=== PATIENT | female | born 1930 | race Caucasian/White ===

== ENCOUNTER → 2017-08-19 | Outpatient (CLI) | payer OTHER ==
[~2017-08-19] MED LIST: CHOL400T PO; CYAN100020 PO; DOCU-94 PO; FERR325T51 PO; FURO-85 PO; METO25TA56 PO; NITR-5 PO; OLME1TAB11 PO; ONDA8TAB6 PO; PANT40TA PO; RIVA1TAB4 PO; TRAM-10 PO
== END | disposition home or self-care (01) ==
LOC: C.LAB 17:07
PROVIDERS: ATTEND Internal Medicine
DX: D51.9 Vitamin B12 deficiency anemia, unspecified (principal); I10 Essential (primary) hypertension; E55.9 Vitamin D deficiency, unspecified; Z79.01 Long term (current) use of anticoagulants; Z79.899 Other long term (current) drug therapy; D50.9 Iron deficiency anemia, unspecified

== ENCOUNTER → 2017-12-07 | Outpatient (CLI) | payer OTHER ==
[~2017-12-07] MED LIST changes: +BNC/20 PO; -OLME1TAB11 PO
--- NOTE | 2017-12-07 16:32 | DIAGNOSTIC IMAGING REPORT ---
CHEST 2 VIEWS ROUTINE CLINICAL HISTORY: J06.9 Acute upper respiratory [id number] COMPARISON STUDY: 06/21/2016 FINDINGS: The cardiac and mediastinal contours remain stable. There is aortic tortuosity/ectasia. There is no failure. There is no focal pulmonary consolidation. There are no pleural effusions.[ IMPRESSION: No active disease in the chest. Electronically signed by: Jeancarlos Bianchi M.D. 12/07/2017 4:30 PM Dictated Date/Time: 12/07/2017 4:30 PM
[2017-12-07 17:24] LABS: BASO % 0.1 %; BASO ABS # 0.01 K/uL (0-0.2); HEMATOCRIT 42.3 % (37-47); HEMOGLOBIN 14.9 g/dL (12.0-16.0); IG# 0.02 K/uL (0.00-0.02); LYMPH % 6.4 %; LYMPH ABS # 0.61 K/uL (1.2-3.4); MEAN CELL VOLUME 95.3 fL (80-100); MEAN CORPUSCULAR HEMOGLOBIN 33.6 pg (25-34); MEAN CORPUSCULAR HGB CONC 35.2 g/dl (32-36); MEAN PLATELET VOLUME 10.3 fL (7.4-10.4); MONO % 12.7 %; MONO ABS # 1.21 K/uL (0.11-0.59); NEUT % 80.6 %; NEUT ABS # 7.69 K/uL (1.4-6.5); PLATELET COUNT 116 K/uL (130-400); RED CELL DISTRIBUTION WIDTH CV 13.5 % (11.5-14.5); RED CELL DISTRIBUTION WIDTH SD 46.8 fL (36.4-46.3); WHITE BLOOD COUNT 9.54 K/uL (4.8-10.8)
[2017-12-07 17:41] LABS: ALBUMIN 3.5 gm/dl (3.4-5.0); ALT/SGPT 22 U/L (12-78); AST/SGOT 22 U/L (15-37); BLOOD UREA NITROGEN 28 mg/dl (7-18); CALCIUM 8.8 mg/dl (8.5-10.1); CARBON DIOXIDE 29 mmol/L (21-32); CREATININE 1.49 mg/dl (0.60-1.20); GLUCOSE 124 mg/dl (70-99); POTASSIUM 3.3 mmol/L (3.5-5.1); SODIUM 132 mmol/L (136-145)
[2017-12-07 17:44] LABS: ALKALINE PHOSPHATASE 71 U/L (45-117); TOTAL PROTEIN 8.1 gm/dl (6.4-8.2)
== END | disposition home or self-care (01) ==
LOC: C.RAD1850 16:11
PROVIDERS: ATTEND Internal Medicine
DX: J06.9 Acute upper respiratory infection, unspecified (principal); E53.8 Deficiency of other specified B group vitamins

== ENCOUNTER → 2018-05-02 | Outpatient (CLI) | payer OTHER ==
[~2018-05-02] MED LIST changes: +ONDA-170 PO; -ONDA8TAB6 PO
== END | disposition home or self-care (01) ==
LOC: C.CCL 12:30
PROVIDERS: ATTEND Internal Medicine
DX: E55.9 Vitamin D deficiency, unspecified (principal); I10 Essential (primary) hypertension; I48.91 Unspecified atrial fibrillation

== ENCOUNTER 2020-02-28 08:14 | Inpatient (IN) ==
[2020-02-28 08:52] LABS: Basophils # (auto) 0.01 K/uL (0-0.2); Basophils % (auto) 0.1 %; Hematocrit (blood only) 42.1 % (37-47); Hemoglobin 14.7 g/dL (12.0-16.0); Immature Granulocytes # (auto) 0.05 K/uL (0.00-0.02); Immature Granulocytes % (auto) 0.4 %; Lymphocytes # (auto) 0.46 K/uL (1.2-3.4); Lymphocytes % (auto) 3.3 %; Mean Corpuscular Hemoglobin 33.6 pg (25-34); Mean Corpuscular Hgb Conc 34.9 g/dL (32-36); Mean Corpuscular Volume 96.1 fL (80-100); Mean Platelet Volume 9.9 fL (7.4-10.4); Monocytes # (auto) 0.62 K/uL (0.11-0.59); Monocytes % (auto) 4.4 %; Neutrophils # (auto) 12.89 K/uL (1.4-6.5); Neutrophils % (auto) 91.8 %; Platelet Count 153 K/uL (130-400); RDW Coefficient of Variation 13.9 % (11.5-14.5); Red Blood Count 4.38 M/uL (4.2-5.4); White Blood Count 14.03 K/uL (4.8-10.8)
--- NOTE | 2020-02-28 09:02 | XRay Report ---
XR chest 1V portable HISTORY: SEPSIS COMPARISON: Chest 12/25/2019. FINDINGS: No pneumothorax. The heart is mildly enlarged. Progressive interstitial and vascular thicke lina with right perihilar hazy airspace opacities. This is consistent with moderate pulmonary edema. There are small bilateral pleural effusions. IMPRESSION: Interval development of moderate pulmonary edema and small bilateral pleural effusions. ACT 112: Negative or not required by law. Electronically signed by: Guido Caldera M.D. 02/28/2020 9:00 AM
[2020-02-28 09:09] LABS: Alanine Aminotransferase 20 U/L (12-78); Albumin Level 3.3 gm/dl (3.4-5.0); Aspartate Aminotransferase 21 U/L (15-37); BUN Creatinine Ratio 15.5 (10-20); Blood Urea Nitrogen 12 mg/dl (7-18); Calcium 8.7 mg/dl (8.5-10.1); Carbon Dioxide 26 mmol/L (21-32); Chloride 85 mmol/L (98-107); Est GFR (African American) 78.1; Est GFR (Non-African American) 67.4; Glucose 267 mg/dl (70-99); Magnesium 1.8 mg/dl (1.8-2.4); Potassium 3.2 mmol/L (3.5-5.1); Sodium 124 mmol/L (136-145)
--- NOTE | 2020-02-28 09:09 | Emergency Department Note ---
Impression & Plan Atrial fibrillation with rapid ventricular response, Atrial fibrillation, Pulmonary edema, Hypoxia, Abdominal pain, Acute hyponatremia, Urinary tract infection ED Provider Note NAME: ERLINDA IBARRA AGE: 89 SEX: F : 1930 ARRIVES VIA: Ambulance INFORMANT: Patient, ED PROVIDER(S): Marcelo Raygoza DO CHIEF COMPLAINT: Abdominal pain HPI: The patient is an 89-year-old female with a history of atrial fibrillation who arrived at the emergency department from [facility]. The patient is obtunded and showing altered mental status. I received a prehospital notification about this patient and she was given IV pain medication prior to arrival for severe abdominal pain. The patient started having abdominal pain today. Her history is severely limited due to altered mental status. She was also noted to have very low oxygen saturation. The patient had no falls. She has had no fever or cough according to the prehospital notification. The patient did receive IV fentanyl prior to arrival. At this time the patient does complain of chest pain difficulty breathing and abdominal pain. She does answer questions slowly and appropriately. She was also noted to have dark stool prior to arrival. ROS: See above HPI for pertinent positives & negatives. A total of 10 systems reviewed and were otherwise negative. PAST MEDICAL HISTORY: See Below PAST SURGICAL HISTORY: See Below FAMILY HISTORY: See Below SOCIAL HISTORY: See Below HOME MEDICATIONS: See Below ALLERGIES: See Below VITALS: See Below PHYSICAL EXAMINATION: GENERAL: The patient is listless and very anxious appearing. She does follow commands slowly. EYES: The conjunctivae are clear. The pupils are round and reactive. EARS, NOSE, MOUTH AND THROAT: The nose is without any evidence of any deformity. Mucous membranes are dry. NECK: The neck is nontender and supple. RESPIRATORY: Shallow respirations were noted. There are diminished breath sounds noted throughout with rales scattered throughout. CARDIOVASCULAR: Tachycardic and irregular heart sounds were noted to auscultation. GASTROINTESTINAL: The abdomen was soft and nondistended. There is diffuse tenderness to palpation. Rectal exam revealed dark stool which was heme- negative. MUSCULOSKELETAL/EXTREMITIES: There is no evidence of gross deformity full range of motion is noted in the hips and shoulders. SKIN: Bilateral pedal edema was noted. There was palpable pulses in both feet. Skin was cool. NEUROLOGIC: Patient is oriented to person place and situation. Strength was diminished but symmetric. MEDICAL DECISION MAKING: The patient is an 89-year-old female who presented to the emergency department with multiple complaints. I am familiar with this patient and I did care for her in the past. The patient's altered mental status is definitely worsened than previous. She also had very severe breathing issues and was found to be in pulmonary edema. The patient was placed on supplemental oxygen which did improve her symptoms initially. She had multiple laboratory and radiographic studies. Ultimately she was found to have significant hypoxia and pulmonary edema. I discussed the patient's condition with her daughter. She is aware of the severity of the patient's condition at this time. I discussed the patient's condition with the on-call [facility] group. They have agreed to evaluate the patient in the emergency department for further management and disposition. The patient was placed on BiPAP which also improved her symptoms. Triage Nursing notes reviewed. Prior medical records reviewed Vital Signs: reviewed and remarkable for hypoxia and tachycardia. Differential diagnosis: Infection, hypoglycemia, electrolyte abnormalities, overdose, toxicologic, cardiac sources, intracerebral event, neurologic, trauma, as well as other pathologies. ER treatment provided: See below Diagnostics interpreted by me: ECG: EKG was obtained in the emergency department. My interpretation is atrial fibrillation at 126 bpm. Frequent PVCs were noted. Poor R wave progression was noted. Diffuse ST segment abnormalities were noted. There is no previous tracing available for comparison. Cardiac Monitoring: An order was placed for continuous cardiac monitoring. The monitor shows a rate of 130 with atrial fibrillation rhythm. Laboratory studies: As stated above and show below. Imaging studies: See below Consultation(s): 1115: I discussed the patient's condition with her daughter, Susie Hall [phone]. She is aware of how sick her mother's condition is. She does state that the patient has advanced directives and would not want to be put on a ventilator at this time. She would like to be updated once the admitting team evaluates the patient. 1140: I discussed this case with Bee who is covering for the [facility] group. They will evaluate the patient in the emergency department for further management disposition. ED COURSE: Procedures: none PDMP:reviewed and no issues Critical Care: I have personally spent greater than 60 minutes of critical care time in the direct management of this patient. This includes bedside care, interpretation of diagnostic studies, and testing, discussion with consultants, patient, and family members, and other required patient management activities. This 60 minutes is in excess of all separately billable procedures. Past Med/Surg History Medical History Anemia, B12 deficiency (Chronic) Anticoagulant long-term use (Chronic) Hypertension (Chronic) Left knee pain (Chronic) Positive Helicobacter pylori serology (Chronic) Postherpetic neuralgia (Chronic) Recurrent UTI (Chronic) Spinal stenosis (Chronic) Vitamin B12 deficiency (Chronic) Vitamin D deficiency (Chronic) Surgical History H/O colonoscopy 04/03/15 - diverticulosis, internal hemorrhoids H/O esophagogastroduodenoscopy 04/02/15 - gastritis, gastric erosions, hiatal hernia H/O hernia repair (Resolved) History of ankle surgery History of cataract surgery (Resolved) Hx of tonsillectomy (Resolved) Social History Preferred Language: Japanese Communication Ability: Effective Communication Ability Comment: altered mental status, Visual Impairment: No Limitations Hearing Ability: Normal Inseminator Required: No Beliefs That Will Affect Care: None Current Living Situation: Personal Care Facility current occupational status: retired Other Information That Helps Us Care for You: No Feels Safe at Home: Yes Safety Concerns: Feels Safe At This Time Safety Concerns Comment: weakness increased, started using wheelchair Smoking Status: Never smoker Do You Dip or Chew Tobacco: No ; Second Hand Exposure: No ; Tobacco Cessation Education Requested by Patient: No Hx Alcohol Use: No Hx Substance Use: No Allergies Allergies Allergy/AdvReac Type Severity Reaction Status Date / Time Quinidine-Quinine Analogues Allergy Severe Anaphylaxis Verified 02/28/20 08:50 (Cincho Sulfa (Sulfonamide Allergy Severe HIVES Verified 02/28/20 08:50 Antibiotics) tetracycline Allergy Mild GI SYMPTOMS Verified 02/28/20 08:50 tramadol AdvReac Cognitive Verified 02/28/20 08:50 symptoms Home Meds Home Medications Medication Instructions Recorded Confirmed ascorbic acid (vitamin C) 500 mg 1 gm PO BID tab 09/11/19 02/28/20 tablet cyanocobalamin (vitamin B-12) 1,000 mcg SL DAILY@0800 #90 tab 10/09/19 02/28/20 1,000 mcg sublingual tablet cholecalciferol (vitamin D3) 125 5,000 units PO DAILY@1600 #30 tab 12/22/19 02/28/20 mcg (5,000 unit) tablet ferrous sulfate 325 mg (65 mg 325 mg PO BID #60 tab 12/22/19 02/28/20 iron) tablet duloxetine 20 mg PO DAILY@0800 12/25/19 02/28/20 pantoprazole 40 mg PO DAILY@0800 12/25/19 02/28/20 rivaroxaban 15 mg PO DAILY@1600 12/25/19 02/28/20 senna 8.6 mg PO BID PRN 12/25/19 02/28/20 acetaminophen 325 mg tablet 650 mg PO Q4H PRN tab 01/01/20 02/28/20 dextromethorphan-guaifenesin 10 5 ml PO Q4H PRN ml 01/01/20 02/28/20 mg-100 mg/5 mL oral liquid docusate sodium 100 mg capsule 100 mg PO BID cap 01/01/20 02/28/20 furosemide 20 mg PO DAILY@0800 02/28/20 02/28/20 losartan-hydrochlorothiazide 0.5 tab PO DAILY@0802/28/20 02/28/20 Previous Rx's Medication Instructions Recorded metoprolol tartrate 25 mg tablet 25 mg PO BID #180 tab 09/24/19 levalbuterol tartrate 45 2 puffs INH Q4H PRN #15 gm 12/05/19 mcg/actuation aerosol inhaler ondansetron HCl 4 mg tablet 4 mg PO Q8H PRN #90 tab 01/22/20 nitrofurantoin macrocrystal 100 mg 100 mg PO DAILY@0800 #90 cap 02/12/20 capsule Results & Data (ED) Vital Signs Vital Signs - 24 hr 02/28/20 08:20 02/28/20 09:05 02/28/20 10:44 Temperature 36.7 C Temperature Source Oral Pulse Rate 136 H Pulse Rate [Apical] 113 H Pulse Rhythm Regular Pulse Rhythm [Apical] Irregular Pulse Strength Normal Pulse Strength [Apical] Normal Respiratory Rate 28 H 26 H Respiratory Effort / Characteristics Non-Labored Spontaneous Spontaneous Accessory Muscle Use Grunting Labored Respiratory Depth Normal Normal Respiratory Pattern Regular Regular Blood Pressure 155/118 H Blood Pressure [Right Arm] 122/87 Blood Pressure Mean 130 Blood Pressure Mean [Right Arm] 98 Blood Pressure Position Sitting Blood Pressure Position [Right Arm] Lying Pulse Oximetry 73 L 90 87 L Oxygen Delivery Method Room Air Non-rebreather Non-rebreather Oxygen Flow Rate 15 15 Fraction of Inspired Oxygen Sepsis Recent Fever Within 48 Hours No Sepsis New/Unexplained Change in Mental Status Yes Sepsis Action Taken by Nursing No Action Required 02/28/20 11:00 02/28/20 11:17 02/28/20 11:30 Temperature Temperature Source Pulse Rate 119 H 114 H Pulse Rate [Apical] 105 H 99 H Pulse Rhythm Irregular Pulse Rhythm [Apical] Irregular Irregular Pulse Strength Pulse Strength [Apical] Normal Normal Respiratory Rate 26 H 22 16 Respiratory Effort / Characteristics Non-Labored Spontaneous Spontaneous SOB on Exertion Non-Labored Spontaneous Respiratory Depth Normal Shallow Normal Respiratory Pattern Regular Tachypnea Regular Blood Pressure Blood Pressure [Right Arm] 104/72 100/66 Blood Pressure Mean Blood Pressure Mean [Right Arm] 82 77 Blood Pressure Position Blood Pressure Position [Right Arm] Lying Lying Pulse Oximetry 88 L 88 L 100 Oxygen Delivery Method Non-rebreather BiPAP Oxygen Flow Rate 15 15 Fraction of Inspired Oxygen 100 Sepsis Recent Fever Within 48 Hours Sepsis New/Unexplained Change in Mental Status Sepsis Action Taken by Nursing 02/28/20 12:00 02/28/20 12:30 02/28/20 13:00 Temperature Temperature Source Pulse Rate Pulse Rate [Apical] 110 H 95 H 95 H Pulse Rhythm Pulse Rhythm [Apical] Irregular Irregular Irregular Pulse Strength Pulse Strength [Apical] Normal Normal Normal Respiratory Rate 20 20 20 Respiratory Effort / Characteristics Non-Labored Spontaneous Non-Labored Spontaneous Non-Labored Spontaneous Respiratory Depth Normal Normal Normal Respiratory Pattern Regular Regular Regular Blood Pressure Blood Pressure [Right Arm] 111/77 105/65 126/92 Blood Pressure Mean Blood Pressure Mean [Right Arm] 88 78 103 Blood Pressure Position Blood Pressure Position [Right Arm] Lying Lying Lying Pulse Oximetry 96 95 97 Oxygen Delivery Method BiPAP BiPAP BiPAP Oxygen Flow Rate Fraction of Inspired Oxygen Sepsis Recent Fever Within 48 Hours Sepsis New/Unexplained Change in Mental Status Sepsis Action Taken by [facility] Medications Current Medication List: was personally reviewed by me Laboratory Data Attestation: I reviewed the patient's lab results. Result diagrams: 02/28/20 08:35 02/28/20 08:35 Lab Results 02/28/20 02/28/20 02/28/20 Range/Units 08:35 08:35 08:35 WBC 14.03 H (4.8-10.8) K/uL RBC 4.38 (4.2-5.4) M/uL Hgb 14.7 (12.0-16.0) g/dL POC Hgb (12.0-16.0) g/dl Hct 42.1 (37-47) % POC Hct (37-47) % MCV 96.1 (80-100) fL MCH 33.6 (25-34) pg MCHC 34.9 (32-36) g/dL RDW Std Deviation 49.0 H (36.4-46.3) fL RDW Coeff of Yemi 13.9 (11.5-14.5) % Plt Count 153 (130-400) K/uL MPV 9.9 (7.4-10.4) fL Immature Gran % (Auto) 0.4 % Neut % (Auto) 91.8 % Lymph % (Auto) 3.3 % [place] % (Auto) 4.4 % Eos % (Auto) 0.0 % Baso % (Auto) 0.1 % Immature Gran # (Auto) 0.05 H (0.00-0.02) K/uL Neut # (Auto) 12.89 H (1.4-6.5) K/uL Lymph # (Auto) 0.46 L (1.2-3.4) K/uL [place] # (Auto) 0.62 H (0.11-0.59) K/uL Eos # (Auto) 0.00 (0-0.5) K/uL Baso # (Auto) 0.01 (0-0.2) K/uL PT 12.9 H (9.0-12.0) Seconds INR 1.2 H (0.9-1.1) APTT 28.4 (21.0-31.0) Seconds PTT Ratio 1.0 VBG pH VBG pCO2 VBG pO2 VBG HCO3 VBG O2 Saturation VBG Base Excess Barometric Pressure POC Sodium (135-144) mmol/L Sodium 124 L (136-145) mmol/L POC Potassium (3.3-5.0) mmol/L Potassium 3.2 L (3.5-5.1) mmol/L POC Chloride (101-112) mmol/L Chloride 85 L (98-107) mmol/L Carbon Dioxide 26 (21-32) mmol/L POC Total CO2 (24-31) mmol/L Anion Gap 13.0 H (3-11) POC Anion Gap (16-25) mmol/L POC BUN (7-18) mg/dl BUN 12 (7-18) mg/dl Creatinine 0.78 (0.6-1.2) mg/dl POC Creatinine (0.6-1.3) mg/dl Est Cr Clr Drug Dosing Not Reportable Est GFR ( Amer) 78.1 Est GFR (Non-Af Amer) 67.4 BUN/Creatinine Ratio 15.5 (10-20) Glucose 267 H (70-99) mg/dl POC Glucose (other) (70-99) mg/dl Lactate (0.4-2.0) mmol/L Calcium 8.7 (8.5-10.1) mg/dl POC Ioniz Calcium Bowen (1.12-1.32) mmol/l Magnesium 1.8 (1.8-2.4) mg/dl Total Bilirubin 1.3 H (0.2-1) mg/dl AST 21 (15-37) U/L ALT 20 (12-78) U/L Alkaline Phosphatase 85 (45-117) U/L Troponin I 0.526 H* (0-0.045) ng/ml Total Protein 6.8 (6.4-8.2) gm/dl Albumin 3.3 L (3.4-5.0) gm/dl Globulin 3.5 (2.5-4.0) gm/dl Albumin/Globulin Ratio 0.9 (0.9-2) Procalcitonin (0-0.5) ng/ml Urine Color Urine Appearance (Clear) Urine pH (4.5-7.5) Ur Specific [place] (1.000-1.030) Urine Protein (Negative) Urine Glucose (UA) (Negative) Urine Ketones (Negative) Urine Blood (Negative) Urine Nitrite (Negative) Urine Bilirubin (Negative) Urine Urobilinogen (Negative) Ur Leukocyte Esterase (Negative) Urine WBC (Auto) (0-5) /hpf Urine RBC (Auto) (0-4) /hpf U Hyaline Cast (Auto) (0-5) /lpf U Epithel Cells (Auto) (0-5) /lpf Urine Bacteria (Auto) (Negative) Ur Renal Epithelial Cell Urine Mucus (None Prsent) SARS-CoV-2 RNA (RT-PCR) Blood Type Antibody Screen 02/28/20 02/28/20 02/28/20 Range/Units 08:35 08:45 08:54 WBC (4.8-10.8) K/uL RBC (4.2-5.4) M/uL Hgb (12.0-16.0) g/dL POC Hgb 16.0 (12.0-16.0) g/dl Hct (37-47) % POC Hct 47 (37-47) % MCV (80-100) fL MCH (25-34) pg MCHC (32-36) g/dL RDW Std Deviation (36.4-46.3) fL RDW Coeff of Yemi (11.5-14.5) % Plt Count (130-400) K/uL MPV (7.4-10.4) fL Immature Gran % (Auto) % Neut % (Auto) % Lymph % (Auto) % [place] % (Auto) % Eos % (Auto) % Baso % (Auto) % Immature Gran # (Auto) (0.00-0.02) K/uL Neut # (Auto) (1.4-6.5) K/uL Lymph # (Auto) (1.2-3.4) K/uL [place] # (Auto) (0.11-0.59) K/uL Eos # (Auto) (0-0.5) K/uL Baso # (Auto) (0-0.2) K/uL PT (9.0-12.0) Seconds INR (0.9-1.1) APTT (21.0-31.0) Seconds PTT Ratio VBG pH VBG pCO2 VBG pO2 VBG HCO3 VBG O2 Saturation VBG Base Excess Barometric Pressure POC Sodium 123 L (135-144) mmol/L Sodium (136-145) mmol/L POC Potassium 3.2 L (3.3-5.0) mmol/L Potassium (3.5-5.1) mmol/L POC Chloride 83 L (101-112) mmol/L Chloride (98-107) mmol/L Carbon Dioxide (21-32) mmol/L POC Total CO2 27 (24-31) mmol/L Anion Gap (3-11) POC Anion Gap 18.0 (16-25) mmol/L POC BUN 11 (7-18) mg/dl BUN (7-18) mg/dl Creatinine (0.6-1.2) mg/dl POC Creatinine 0.6 (0.6-1.3) mg/dl Est Cr Clr Drug Dosing Est GFR ( Amer) Est GFR (Non-Af Amer) BUN/Creatinine Ratio (10-20) Glucose (70-99) mg/dl POC Glucose (other) 273 H (70-99) mg/dl Lactate 2.7 H* (0.4-2.0) mmol/L Calcium (8.5-10.1) mg/dl POC Ioniz Calcium Bowen 1.06 L (1.12-1.32) mmol/l Magnesium (1.8-2.4) mg/dl Total Bilirubin (0.2-1) mg/dl AST (15-37) U/L ALT (12-78) U/L Alkaline Phosphatase (45-117) U/L Troponin I (0-0.045) ng/ml Total Protein (6.4-8.2) gm/dl Albumin (3.4-5.0) gm/dl Globulin (2.5-4.0) gm/dl Albumin/Globulin Ratio (0.9-2) Procalcitonin (0-0.5) ng/ml Urine Color Yellow Urine Appearance Clear (Clear) Urine pH 7.0 (4.5-7.5) Ur Specific [place] 1.019 (1.000-1.030) Urine Protein 3+ H (Negative) Urine Glucose (UA) 2+ H (Negative) Urine Ketones 1+ H (Negative) Urine Blood Trace H (Negative) Urine Nitrite Negative (Negative) Urine Bilirubin Negative (Negative) Urine Urobilinogen Negative (Negative) Ur Leukocyte Esterase Negative (Negative) Urine WBC (Auto) 5-10 H (0-5) /hpf Urine RBC (Auto) 5-10 H (0-4) /hpf U Hyaline Cast (Auto) 5-10 H (0-5) /lpf U Epithel Cells (Auto) >30 H (0-5) /lpf Urine Bacteria (Auto) 1+ H (Negative) Ur Renal Epithelial Cell Not Reportable Urine Mucus Present A (None Prsent) SARS-CoV-2 RNA (RT-PCR) Blood Type Antibody Screen 02/28/20 02/28/20 02/28/20 Range/Units 09:24 09:24 09:33 WBC (4.8-10.8) K/uL RBC (4.2-5.4) M/uL Hgb (12.0-16.0) g/dL POC Hgb (12.0-16.0) g/dl Hct (37-47) % POC Hct (37-47) % MCV (80-100) fL MCH (25-34) pg MCHC (32-36) g/dL RDW Std Deviation (36.4-46.3) fL RDW Coeff of Yemi (11.5-14.5) % Plt Count (130-400) K/uL MPV (7.4-10.4) fL Immature Gran % (Auto) % Neut % (Auto) % Lymph % (Auto) % [place] % (Auto) % Eos % (Auto) % Baso % (Auto) % Immature Gran # (Auto) (0.00-0.02) K/uL Neut # (Auto) (1.4-6.5) K/uL Lymph # (Auto) (1.2-3.4) K/uL [place] # (Auto) (0.11-0.59) K/uL Eos # (Auto) (0-0.5) K/uL Baso # (Auto) (0-0.2) K/uL PT (9.0-12.0) Seconds INR (0.9-1.1) APTT (21.0-31.0) Seconds PTT Ratio VBG pH Cancelled VBG pCO2 Cancelled VBG pO2 Cancelled VBG HCO3 Cancelled VBG O2 Saturation Cancelled VBG Base Excess Cancelled Barometric Pressure Cancelled POC Sodium (135-144) mmol/L Sodium (136-145) mmol/L POC Potassium (3.3-5.0) mmol/L Potassium (3.5-5.1) mmol/L POC Chloride (101-112) mmol/L Chloride (98-107) mmol/L Carbon Dioxide (21-32) mmol/L POC Total CO2 (24-31) mmol/L Anion Gap (3-11) POC Anion Gap (16-25) mmol/L POC BUN (7-18) mg/dl BUN (7-18) mg/dl Creatinine (0.6-1.2) mg/dl POC Creatinine (0.6-1.3) mg/dl Est Cr Clr Drug Dosing Est GFR ( Amer) Est GFR (Non-Af Amer) BUN/Creatinine Ratio (10-20) Glucose (70-99) mg/dl POC Glucose (other) (70-99) mg/dl Lactate (0.4-2.0) mmol/L Calcium (8.5-10.1) mg/dl POC Ioniz Calcium Bowen (1.12-1.32) mmol/l Magnesium (1.8-2.4) mg/dl Total Bilirubin (0.2-1) mg/dl AST (15-37) U/L ALT (12-78) U/L Alkaline Phosphatase (45-117) U/L Troponin I (0-0.045) ng/ml Total Protein (6.4-8.2) gm/dl Albumin (3.4-5.0) gm/dl Globulin (2.5-4.0) gm/dl Albumin/Globulin Ratio (0.9-2) Procalcitonin < 0.05 (0-0.5) ng/ml Urine Color Urine Appearance (Clear) Urine pH (4.5-7.5) Ur Specific [place] (1.000-1.030) Urine Protein (Negative) Urine Glucose (UA) (Negative) Urine Ketones (Negative) Urine Blood (Negative) Urine Nitrite (Negative) Urine Bilirubin (Negative) Urine Urobilinogen (Negative) Ur Leukocyte Esterase (Negative) Urine WBC (Auto) (0-5) /hpf Urine RBC (Auto) (0-4) /hpf U Hyaline Cast (Auto) (0-5) /lpf U Epithel Cells (Auto) (0-5) /lpf Urine Bacteria (Auto) (Negative) Ur Renal Epithelial Cell Urine Mucus (None Prsent) SARS-CoV-2 RNA (RT-PCR) Blood Type A Negative Antibody Screen NEGATIVE 02/28/20 02/28/20 02/28/20 Range/Units 10:10 11:06 12:38 WBC (4.8-10.8) K/uL RBC (4.2-5.4) M/uL Hgb (12.0-16.0) g/dL POC Hgb (12.0-16.0) g/dl Hct (37-47) % POC Hct (37-47) % MCV (80-100) fL MCH (25-34) pg MCHC (32-36) g/dL RDW Std Deviation (36.4-46.3) fL RDW Coeff of Yemi (11.5-14.5) % Plt Count (130-400) K/uL MPV (7.4-10.4) fL Immature Gran % (Auto) % Neut % (Auto) % Lymph % (Auto) % [place] % (Auto) % Eos % (Auto) % Baso % (Auto) % Immature Gran # (Auto) (0.00-0.02) K/uL Neut # (Auto) (1.4-6.5) K/uL Lymph # (Auto) (1.2-3.4) K/uL [place] # (Auto) (0.11-0.59) K/uL Eos # (Auto) (0-0.5) K/uL Baso # (Auto) (0-0.2) K/uL PT (9.0-12.0) Seconds INR (0.9-1.1) APTT (21.0-31.0) Seconds PTT Ratio VBG pH 7.35 L VBG pCO2 61 H VBG pO2 26 VBG HCO3 33 VBG O2 Saturation < 60.0 VBG Base Excess 5.5 Barometric Pressure 740.4 POC Sodium (135-144) mmol/L Sodium (136-145) mmol/L POC Potassium (3.3-5.0) mmol/L Potassium (3.5-5.1) mmol/L POC Chloride (101-112) mmol/L Chloride (98-107) mmol/L Carbon Dioxide (21-32) mmol/L POC Total CO2 (24-31) mmol/L Anion Gap (3-11) POC Anion Gap (16-25) mmol/L POC BUN (7-18) mg/dl BUN (7-18) mg/dl Creatinine (0.6-1.2) mg/dl POC Creatinine (0.6-1.3) mg/dl Est Cr Clr Drug Dosing Est GFR ( Amer) Est GFR (Non-Af Amer) BUN/Creatinine Ratio (10-20) Glucose (70-99) mg/dl POC Glucose (other) (70-99) mg/dl Lactate 3.6 H* (0.4-2.0) mmol/L Calcium (8.5-10.1) mg/dl POC Ioniz Calcium Bowen (1.12-1.32) mmol/l Magnesium (1.8-2.4) mg/dl Total Bilirubin (0.2-1) mg/dl AST (15-37) U/L ALT (12-78) U/L Alkaline Phosphatase (45-117) U/L Troponin I (0-0.045) ng/ml Total Protein (6.4-8.2) gm/dl Albumin (3.4-5.0) gm/dl Globulin (2.5-4.0) gm/dl Albumin/Globulin Ratio (0.9-2) Procalcitonin (0-0.5) ng/ml Urine Color Urine Appearance (Clear) Urine pH (4.5-7.5) Ur Specific [place] (1.000-1.030) Urine Protein (Negative) Urine Glucose (UA) (Negative) Urine Ketones (Negative) Urine Blood (Negative) Urine Nitrite (Negative) Urine Bilirubin (Negative) Urine Urobilinogen (Negative) Ur Leukocyte Esterase (Negative) Urine WBC (Auto) (0-5) /hpf Urine RBC (Auto) (0-4) /hpf U Hyaline Cast (Auto) (0-5) /lpf U Epithel Cells (Auto) (0-5) /lpf Urine Bacteria (Auto) (Negative) Ur Renal Epithelial Cell Urine Mucus (None Prsent) SARS-CoV-2 RNA (RT-PCR) Cancelled Blood Type Antibody Screen Administered Medications Ioversol (Optiray 320 125ml) 120 ml IV ONCE PRN PRN Reason: Interaction Checking Stop: 03/03/20 10:21 Last Admin: 02/28/20 10:23 Dose: 120 ml Documented by: [id number] Discontinued Medications Furosemide (Lasix) 40 mg IV NOW STA Stop: 02/28/20 10:32 Last Admin: 02/28/20 10:52 Dose: 40 mg Documented by: [id number] Piperacillin Sod/Tazobactam Sod (Zosyn) 4.5 gm in 120 mls @ 240 mls/hr IV NOW ONE Stop: 02/28/20 11:41 Last Admin: 02/28/20 12:32 Dose: 240 mls/hr Documented by: [id number] Imaging Data Radiologist's Impression: CT head/brain wo con CLINICAL HISTORY: 89 years-old Female presenting with altered mental status. TECHNIQUE: Multidetector CT imaging of the head was performed without the use of intravenous contrast. IV contrast: None. One or more dose lowering techniques were used consistent with the principles of ALARA (as low as reasonably achievable), including automatic exposure control, mA or kV adjustment to individual patient size, and/or use of iterative reconstruction. COMPARISON: 12/25/2019. CT DOSE (mGy.cm): The estimated cumulative dose is 1459.56 mGycm. FINDINGS: Fusion Juncture Grinder topogram: Unremarkable. Proportional ventricular and sulcal prominence, likely age-related parenchymal volume loss. No hemorrhage. Periventricular and subcortical white matter hypoattenuation, nonspecific but likely indicative of chronic small vessel ischemic change. Old lacunar infarct in the left thalamus, unchanged. No acute territorial infarct. No mass effect or midline shift. No extra-axial fluid collection. Paranasal sinuses and mastoid air cells clear. Calvarium intact. Absent [place] lenses. IMPRESSION: 1. 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 No acute intracranial abnormality. ACT 112: Negative or not required by law. Electronically signed by: Jacob Campos M.D. 02/28/2020 10:44 AM Dictated: 02/28/20 1037 Transcribed: 02/28/20 1037 XR chest 1V portable HISTORY: SEPSIS COMPARISON: Chest 12/25/2019. FINDINGS: No pneumothorax. The heart is mildly enlarged. Progressive interstitial and vascular thickening with right perihilar hazy airspace opacities. This is consistent with moderate pulmonary edema. There are small bilateral pleural effusions. IMPRESSION: Interval development of moderate pulmonary edema and small bilateral pleural effusions. ACT 112: Negative or not required by law. Electronically signed by: Guido Caldera M.D. 02/28/2020 9:00 AM Dictated: 02/28/20 0857 Transcribed: 02/28/[address] ANGIOGRAPHY OF THE CHEST, PULMONARY EMBOLUS PROTOCOL CLINICAL HISTORY: Shortness of breath. Evaluate for pulmonary embolus. COMPARISON STUDY: Chest radiograph December 25, 2019 and February 28, 2020. TECHNIQUE: Following IV administration of 120 mL of Optiray-320, helical axial images of the chest were obtained utilizing the pulmonary embolus protocol. Maximal intensity projections and sagittal and coronal reformats were viewed on an independent 3D workstation. IV contrast was administered without complication. Automated exposure control was utilized for the study. A dose lowering technique was utilized adhering to the principles of ALARA. CT DOSE: 1469.48 mGycm FINDINGS: No pulmonary emboli are identified although this exam is mildly compromised by motion artifact. Moderate cardiomegaly is noted. There is no p ericardial effusion. 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 Aortic opacification is suboptimal but there is no evidence for dissection on this exam. Moderate bilateral pleural effusions are noted. There is no pneumothorax. Lungs are s uboptimally assessed given respiratory motion. Groundglass opacities and interlobular septal thickening within the lungs are noted. There is extensive airspace opacity within the right upper lobe and superior segment of the right lower lobe. Left lower lobe opacity favors atelectasis. No suspicious osseous lesions within bony thorax are noted. Several mildly enlarged mediastinal lymph nodes are noted. These measure up to 1.4 cm in short axis diameter. IMPRESSION: 1. No pulmonary emboli identified although exam mildly compromised by respiratory motion. 2. Moderate bilateral pleural effusions. Left lower lobe opacity favors atelectasis although consolidation could appear similar. 3. Interlobular septal thickening groundglass opacity within the lungs consistent with pulmonary edema. Extensive space opacity within the right upper lobe and superior segment of the right lower lobe favors asymmetric alveolar edema however pneumonia could appear similar. 4. Moderate cardiomegaly. 5. 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 ACT 112: Negative or not required by law. Electronically signed by: Bruno Martel M.D. 02/28/2020 10:52 AM Dictated: 02/28/20 1039 Transcribed: 02/28/[address] OF THE ABDOMEN AND PELVIS WITH CONTRAST CLINICAL HISTORY: Abdominal pain. COMPARISON STUDY: CT of the abdomen and pelvis July 27, 2019. TECHNIQUE: Following IV administration of 120 mL of Optiray-320, axial images of the abdomen and pelvis were obtained from the lung bases to the proximal femurs. Images were reviewed in the axial, sagittal, and coronal planes. IV contrast was administered without complication. Automated exposure control was utilized for the study. A dose lowering technique was utilized adhering to the principles of ALARA. FINDINGS: Please note that the chest will be reported separately. Bilateral pleural effusions and airspace opacities are better depicted on that exam. This exam is significantly compromised by motion artifact. There are gallstones within the gallbladder without evidence for acute cholecystitis. Heterogeneity of the liver parenchyma may be due to right heart dysfunction. The spleen, adrenal glands, kidneys and pancreas are grossly unremarkable. There is no hydronephrosis. There is a moderate amount stool within the rectum. Neville balloon is present within the bladder. Extensive sigmoid diverticulosis is noted without definite evidence for acute diverticulitis. No pneumatosis, free air or portal venous gas is present. IMPRESSION: 1. Exam significantly compromised by motion artifact. 2. Heterogeneity of the liver parenchyma which may be due to right heart dy sfunction. 3. Moderate amount stool within the rectum. 4. Extensive sigmoid diverticulosis without convincing evidence for acute diverticulitis although sensitivity is diminished on this study. 5. Cholelithiasis. ACT 112: Negative or not required by law. Electronically signed by: Bruno Martel M.D. 02/28/2020 10:58 AM Dictated: 02/28/20 1044 Transcribed: 02/28/20 1044 Blood Pressure Blood Pressure Findings: Normal blood pressure Discharge Plan Visit Data Chief Complaint: Altered Mental Status ED Provider: Marcelo Raygoza Discharge Problem: Atrial fibrillation with rapid ventricular response, Atrial fibrillation, Pulmonary edema, Hypoxia, Abdominal pain, Acute hyponatremia, Urinary tract infection Patient Disposition: Being Evaluated by Hospitalist Condition: Good Forms Stand Alone Forms: [email or web address] Prescriptions Prescriptions: No Action ascorbic acid (vitamin C) 500 mg tablet 1 gm PO BID RF: 0 metoprolol tartrate 25 mg tablet 25 mg PO BID Qty: 180 RF: 3 cyanocobalamin (vitamin B-12) 1,000 mcg tablet, sublingual 1,000 mcg SL DAILY@0800 Qty: 90 RF: 0 levalbuterol tartrate [Xopenex HFA] 45 mcg/actuation HFA aerosol inhaler 2 puffs INH Q4H PRN (Reason: shortness of breath or wheezing) Qty: 15 RF: 5 ondansetron HCl [Zofran] 4 mg tablet 4 mg PO Q8H PRN (Reason: nausea and vomiting) Qty: 90 RF: 0 nitrofurantoin macrocrystal 100 mg capsule 100 mg PO DAILY@0800 Qty: 90 RF: 3 ferrous sulfate 325 mg (65 mg iron) tablet 325 mg PO BID Qty: 60 RF: 0 cholecalciferol (vitamin D3) 125 mcg (5,000 unit) tablet 5,000 units PO DAILY@1600 Qty: 30 RF: 0 docusate sodium 100 mg capsule 100 mg PO BID RF: 0 acetaminophen 325 mg tablet 650 mg PO Q4H PRN (Reason: fever or pain) RF: 0 dextromethorphan-guaifenesin 10-100 mg/5 mL liquid 5 ml PO Q4H PRN (Reason: cough) RF: 0 furosemide 20 mg tablet 20 mg PO DAILY@0800 RF: 0 losartan-hydrochlorothiazide 50-12.5 mg tablet 0.5 tab PO DAILY@0800 RF: 0 senna 8.6 mg Capsule 8.6 mg PO BID PRN (Reason: Constipation) RF: 0 pantoprazole 40 mg tablet,delayed release (DR/EC) 40 mg PO DAILY@0800 RF: 0 duloxetine 20 mg capsule,delayed release(DR/EC) 20 mg PO DAILY@0800 RF: 0 rivaroxaban 15 mg tablet 15 mg PO DAILY@1600 RF: 0 [facility] [Primary Care Provider] -
[2020-02-28 09:11] LABS: INR 1.2 (0.9-1.1); Partial Thromboplastin Time 28.4 Seconds (21.0-31.0); Prothrombin Time 12.9 Seconds (9.0-12.0)
[2020-02-28 09:18] LABS: Appearance Urine Clear (Clear); Bilirubin Urine Negative (Negative); Blood Urine Trace (Negative); Color Urine Yellow; Epithelial Cell Urine Auto >30 /lpf (0-5); Glucose Urine UA 2+ (Negative); Ketones Urine 1+ (Negative); Leukocyte Esterase Urine Negative (Negative); Nitrite Urine Negative (Negative); Protein Urine 3+ (Negative); Specific Gravity Urine 1.019 (1.000-1.030); Urobilinogen Urine Negative (Negative)
[2020-02-28 09:41] LABS: Albumin Globulin Ratio 0.9 (0.9-2); Alkaline Phosphatase 85 U/L (45-117); Bilirubin,Total 1.3 mg/dl (0.2-1); Globulin 3.5 gm/dl (2.5-4.0); Total Protein 6.8 gm/dl (6.4-8.2); Troponin I 0.526 ng/ml (0-0.045)
[2020-02-28 09:42] LABS: Mucus Urine Present (None Prsent)
[2020-02-28 09:43] LABS: Bacteria Urine Automated 1+ (Negative)
[2020-02-28] MEDS ORDERED: OPTIRAY 320 125ml IV PRN (10:22)
[2020-02-28 10:28] LABS: Base Excess VBG 5.5 mEq/L; HCO3 VBG 33 mmol/L; PCO2 VBG 61 mmHg (38-50); PO2 VBG 26 mmHg; pH VBG 7.35 (7.36-7.41)
[2020-02-28] MEDS ORDERED: FUROSEMIDE 40 MG/4 ML VIAL IV STA (10:31)
[2020-02-28 10:33] LABS: Oxygen Saturation VBG < 60.0 %
--- NOTE | 2020-02-28 10:45 | CT Scan Report ---
CT head/brain wo con CLINICAL HISTORY: 89 years-old Female presenting with altered mental status. TECHNIQUE: Multidetector CT imaging of the head was performed without the use of intravenous contrast . IV contrast: None. One or more dose lowering techniques were used consistent with the principles of ALARA (as low as reasonably achievable), including automatic exposure control, mA or kV adjustment t o individual patient size, and/or use of iterative reconstruction. COMPARISON: 12/25/2019. CT DOSE (mGy.cm): The estimated cumulative dose is 1459.56 mGycm. FINDINGS: Screen Tender topogram: Unremarkable. Proportional ventricular and sulcal prominence, likely age-related parenchymal volume loss. No hemorr mariah. Periventricular and subcortical white matter hypoattenuation, nonspecific but likely indicative of chronic small vessel ischemic change. Old lacunar infarct in the left thalamus, unchanged. No acu te territorial infarct. No mass effect or midline shift. No extra-axial fluid collection. Paranasal s inuses and mastoid air cells clear. Calvarium intact. Absent [place] lenses. IMPRESSION: 1. 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 No acut e intracranial abnormality. ACT 112: Negative or not required by law. Electronically signed by: Jacob Campos M.D. 02/28/2020 10:44 AM
--- NOTE | 2020-02-28 10:53 | CT Scan Report ---
CT ANGIOGRAPHY OF THE CHEST, PULMONARY EMBOLUS PROTOCOL CLINICAL HISTORY: Shortness of breath. Evaluate for pulmonary embolus. COMPARISON STUDY: Chest radiograph December 25, 2019 and February 28, 2020. TECHNIQUE: Following IV administration of 120 mL of Optiray-320, helical axial images of the chest we re obtained utilizing the pulmonary embolus protocol. Maximal intensity projections and sagittal and coronal reformats were viewed on an independent 3D workstation. IV contrast was administered withou t complication. Automated exposure control was utilized for the study. A dose lowering technique wa s utilized adhering to the principles of ALARA. CT DOSE: 1469.48 mGycm FINDINGS: No pulmonary emboli are identified although this exam is mildly compromised by motion heavenly fact. Moderate cardiomegaly is noted. There is no pericardial effusion. 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 Aortic opacification is s uboptimal but there is no evidence for dissection on this exam. Moderate bilateral pleural effusions are noted. There is no pneumothorax. Lungs are suboptimally assessed given respiratory motion. Ground glass opacities and interlobular septal thickening within the lungs are noted. There is extensive air space opacity within the right upper lobe and superior segment of the right lower lobe. Left lower lo be opacity favors atelectasis. No suspicious osseous lesions within bony thorax are noted. Several mi ldly enlarged mediastinal lymph nodes are noted. These measure up to 1.4 cm in short axis diameter. IMPRESSION: 1. No pulmonary emboli identified although exam mildly compromised by respiratory motion. 2. Moderate bilateral pleural effusions. Left lower lobe opacity favors atelectasis although consolid ation could appear similar. 3. Interlobular septal thickening groundglass opacity within the lungs consistent with pulmonary sharmaine a. Extensive space opacity within the right upper lobe and superior segment of the right lower lobe f avors asymmetric alveolar edema however pneumonia could appear similar. 4. Moderate cardiomegaly. 5. 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 ACT 112: Negative or not required by law. Electronically signed by: Bruno Martel M.D. 02/28/2020 10:52 AM
--- NOTE | 2020-02-28 10:59 | CT Scan Report ---
CT OF THE ABDOMEN AND PELVIS WITH CONTRAST CLINICAL HISTORY: Abdominal pain. COMPARISON STUDY: CT of the abdomen and pelvis July 27, 2019. TECHNIQUE: Following IV administration of 120 mL of Optiray-320, axial images of the abdomen and pelv is were obtained from the lung bases to the proximal femurs. Images were reviewed in the axial, sagit kade, and coronal planes. IV contrast was administered without complication. Automated exposure contr ol was utilized for the study. A dose lowering technique was utilized adhering to the principles of ALARA. FINDINGS: Please note that the chest will be reported separately. Bilateral pleural effusions and air space opacities are better depicted on that exam. This exam is significantly compromised by motion ar tifact. There are gallstones within the gallbladder without evidence for acute cholecystitis. Heterog eneity of the liver parenchyma may be due to right heart dysfunction. The spleen, adrenal glands, kid neys and pancreas are grossly unremarkable. There is no hydronephrosis. There is a moderate amount st ool within the rectum. Neville balloon is present within the bladder. Extensive sigmoid diverticulosis is noted without definite evidence for acute diverticulitis. No pneumatosis, free air or portal venou s gas is present. IMPRESSION: 1. Exam significantly compromised by motion artifact. 2. Heterogeneity of the liver parenchyma which may be due to right heart dysfunction. 3. Moderate amount stool within the rectum. 4. Extensive sigmoid diverticulosis without convincing evidence for acute diverticulitis although sen sitivity is diminished on this study. 5. Cholelithiasis. ACT 112: Negative or not required by law. Electronically signed by: Bruno Martel M.D. 02/28/2020 10:58 AM
[2020-02-28] MEDS ORDERED: PIPERACILL/TAZOBAC CONSULT ACTIVE PRN (11:12)
[2020-02-28] MEDS ORDERED: PIPERACILLIN/TAZOBACTAM 4.5 GM/120 ML BAG IV ONE (11:12)
[2020-02-28 11:47] LABS: iSTAT Creatinine 0.6 mg/dl (0.6-1.3); iSTAT Ionized Calcium 1.06 mmol/l (1.12-1.32); iSTAT Potassium 3.2 mmol/L (3.3-5.0)
--- NOTE | 2020-02-28 12:15 | History & Physical Report ---
Date of Service February 28, 2020 Assessment & Plan (1) Acute respiratory failure with hypoxia: - Admit to PCU - Checking COVID-19 for rule out with acute hypoxia, respiratory distress, CT findings concerning for pneumonia and moderate bilateral effusions - Continue airborne precautions - Consult pulmonary-possible need for thoracentesis? pt on xarelto. - Check esr, crp, procal, d-dimer - Continue bipap for now, wean as tolerated, patient is a DO NOT INTUBATE - Administered lasix 40 mg IV in the ER, monitor I/Os. Has been taking Lasix 20 mg BID for extra fluid in the past week per daughter. - VBG reviewed: pH = 7.35, CO2 = 61, PO2 = 26, HCO3 = 33 (2) Pleural effusion: - Pulm consulted for possible thoracentesis, as above (3) Atrial fibrillation: - On xarelto 15 mg daily -HR of 101 at bedside, will likely improved with electrolyte correction and improved aeration. - Checking a 2D echo, unable to find old one in EMR - Possible decompensated heart failure in the setting of pulmonary edema/pleural effusions? Pt with hx of aortic valve dysfunction, will await echo results. (4) Elevated troponin: - Trop elevated at 0.526, trend x 2 more sets, has not previously been elevated - EKG reviewed (5) Recurrent UTI: - hx of such - UA appears to be contaminated here, unlikely source - Had UA sent earlier this week for concern for UTI and came back negative. Pt on nitrofurantoin all the time for prevention per PCP, hold for now while getting zosyn IV. (6) Hypertension: -Continue losartan/HCTZ daily 100-25 mg, metoprolol tartrate 25 mg BID, holding p.o. Lasix, giving IV Lasix as above (7) GERD without esophagitis: -Continue pantoprazole (8) Constipation: -Chronic, nursing reports from [facility] that patient had large dark bowel movement this morning during altered mental status, possibly incontinent of stool, heme negative here in the ER. - Does take senna plus and docusate 100 mg twice daily for chronic constipation (9) Vitamin D deficiency: -Continue supplementation (10) Vitamin B12 deficiency: -Continue supplementation (11) Postherpetic neuralgia: -Noted (12) Hyponatremia: -Sodium of 124 on arrival, currently with pulmonary edema and pleural effusions was given IV dose of Lasix as above, monitor sodium levels, replete as necessary once breathing status improves -Follow am labs (13) Sarcopenia: -Albumin 3.3 on admission, establish increased protein supplementation with dietary intake once more awake (14) Hypokalemia: -Potassium of 3.2 on admission, will replete via IV (15) DVT prophylaxis: - teds, Xarelto CODE: DNR/DNI-discussed with the daughter, Susie, over the phone. All her questions and concerns were addressed. Dispo: From home, likely to remain in the hospital x 2 days History of Present Illness Primary Care Provider: [facility], [facility] This is an 89 yo F with PMHx of chronic A. fib on Xarelto, HTN, HLD, myelodysplasia, aortic valve dysfunction, vitamin D and B12 deficiency, gait disturbance, GERD, chronic constipation, recurrent UTIs, anemia, postherpetic neuralgia, who presented with altered mental status to the ER. The patient is unable to provide any HPI or ROS. She moans at bedside but unable to provide any other sufficient information. Spoke with Kristie, a nurse at [facility] - Staff noticed pt wasn't herself yesterday and became more confused, was not able to dress herself last evening and normally is very independent. She at one point had a pull up brief on her head. A urine culture was sent out for hx of recurrent UTIs, and they are awaiting results. Pt went to sleep without any overnight events. At 7Am this morning she was found moaning in bed, not speaking any other words, and reported pain in the abdomen. She had a dark black bowel movement this morning while in bed, unaware that she had done so. Nursing reports chronic nausea and takes a zofran 2 mg Q6H prn at least two times a day routinely. She had a pursed lip breathing, her hands were dark purple and lips pale, + use of accessory muscles for breathing, and hypoxic in the mid 80s upon EMS arrival on room air.. She previously worse O2 at home before, but was not required upon her arrival to their facility and has been there since Nov 2019.. Never had symptoms prior to this similar to this. Pt has not traveled, limited staff at the faciligy and no known community exposure. Afebrile. PT/OT last was in there 14 days ago who come in from outside agencies. Nursing staff denies any known COVID- 19 exposure. She was able to take medication last evening. She had eaten dinner last evening at 5 pm without difficulty. Allergies Allergy/AdvReac Type Severity Reaction Status Date / Time Quinidine-Quinine Analogues Allergy Severe Anaphylaxis Verified 02/28/20 08:50 (Cincho Sulfa (Sulfonamide Allergy Severe HIVES Verified 02/28/20 08:50 Antibiotics) tetracycline Allergy Mild GI SYMPTOMS Verified 02/28/20 08:50 tramadol AdvReac Cognitive Verified 02/28/20 08:50 symptoms Home Medications Home Medications Medication Instructions Recorded Confirmed Type ascorbic acid (vitamin C) 500 mg 1 gm PO BID tab 09/11/19 02/28/20 History tablet metoprolol tartrate 25 mg tablet 25 mg PO BID #180 tab 09/24/19 02/28/20 Rx cyanocobalamin (vitamin B-12) 1,000 mcg SL DAILY@0800 #90 tab 10/09/19 02/28/20 History 1,000 mcg sublingual tablet levalbuterol tartrate 45 2 puffs INH Q4H PRN #15 gm 12/05/19 02/28/20 Rx mcg/actuation aerosol inhaler cholecalciferol (vitamin D3) 125 5,000 units PO DAILY@1600 #30 tab 12/22/19 02/28/20 History mcg (5,000 unit) tablet ferrous sulfate 325 mg (65 mg 325 mg PO BID #60 tab 12/22/19 02/28/20 History iron) tablet duloxetine 20 mg PO DAILY@0800 12/25/19 02/28/20 History pantoprazole 40 mg PO DAILY@0800 12/25/19 02/28/20 History rivaroxaban 15 mg PO DAILY@1600 12/25/19 02/28/20 History senna 8.6 mg PO BID PRN 12/25/19 02/28/20 History acetaminophen 325 mg tablet 650 mg PO Q4H PRN tab 01/01/20 02/28/20 History dextromethorphan-guaifenesin 10 5 ml PO Q4H PRN ml 01/01/20 02/28/20 History mg-100 mg/5 mL oral liquid docusate sodium 100 mg capsule 100 mg PO BID cap 01/01/20 02/28/20 History ondansetron HCl 4 mg tablet 4 mg PO Q8H PRN #90 tab 01/22/20 02/28/20 Rx nitrofurantoin macrocrystal 100 mg 100 mg PO DAILY@0800 #90 cap 02/12/20 02/28/20 Rx capsule furosemide 20 mg PO DAILY@0800 02/28/20 02/28/20 History losartan-hydrochlorothiazide 0.5 tab PO DAILY@0800 02/28/20 02/28/20 History Past Med/Surg History Medical History Anemia, B12 deficiency (Chronic) Anticoagulant long-term use (Chronic) Hypertension (Chronic) Left knee pain (Chronic) Positive Helicobacter pylori serology (Chronic) Postherpetic neuralgia (Chronic) Recurrent UTI (Chronic) Spinal stenosis (Chronic) Vitamin B12 deficiency (Chronic) Vitamin D deficiency (Chronic) Surgical History H/O colonoscopy 04/03/15 - diverticulosis, internal hemorrhoids H/O esophagogastroduodenoscopy 04/02/15 - gastritis, gastric erosions, hiatal hernia H/O hernia repair (Resolved) History of ankle surgery History of cataract surgery (Resolved) Hx of tonsillectomy (Resolved) Family History Mother Diabetes Myocardial infarction Brother Lung disease Daughter Colon cancer Denies family history of Ovarian cancer Prostate cancer Breast cancer Social History Preferred Language: Malian Communication Ability: Effective Visual Impairment: No Limitations Hearing Ability: Normal It Training Specialist Required: No Beliefs That Will Affect Care: None Current Living Situation: Personal Care Facility current occupational status: retired Feels Safe at Home: Yes Safety Concerns Comment: weakness increased, started using wheelchair Smoking Status: Never smoker Second Hand Exposure: No ; Hx Alcohol Use: No Hx Substance Use: No Review of Systems Review of Systems: Unobtainable due to cognitive status Physical Exam Physical Exam: General: asleep, moans to sternal rub, wearing bipap Head: Normocephalic, atraumatic ENT: PERRL, pharynx not examined due to on bipap Chest: + Bipap, + rales throughout, diminished at bases bilaterally Cardiac: Irreg irregular, HR ~100s at bedside, +CURRY grade III/ with radiation to back, no JVD, normal peripheral pulses, good capillary refill Abdominal: NABS x 4 quadrants, soft, nondistended, nontender to palpation, no rebound, guarding or tenderness Extremities: Normal inspection, no peripheral edema or erythema, calfs nontender to palpation Psych: Normal mood and affect Neuro: AAO x 3, strength intact bilaterally and rated 5/5, no motor deficits, speech is clear, no peripheral sensory deficits Skin: no rash or erythema Results & Data Results & Data ([facility]) Vital Signs (Past 12 Hours) Vital Signs Temp Pulse Pulse Resp BP BP Pulse Ox 02/28/20 11:17 119 H 22 88 L 02/28/20 10:44 113 H 26 H 122/87 87 L 02/28/20 09:05 90 02/28/20 08:20 36.7 C 136 H 28 H 155/[address] H [address] OF THE ABDOMEN AND PELVIS WITH CONTRAST CLINICAL HISTORY: Abdominal pain. COMPARISON STUDY: CT of the abdomen and pelvis July 27, 2019. TECHNIQUE: Following IV administration of 120 mL of Optiray-320, axial images of the abdomen and pelvis were obtained from the lung bases to the proximal femurs. Images were reviewed in the axial, sagittal, and coronal planes. IV contrast was administered without complication. Automated exposure control was utilized for the study. A dose lowering technique was utilized adhering to the principles of ALARA. FINDINGS: Please note that the chest will be reported separately. Bilateral pleural effusions and airspace opacities are better depicted on that exam. This exam is significantly compromised by motion artifact. There are gallstones within the gallbladder without evidence for acute cholecystitis. Heterogeneity of the liver parenchyma may be due to right heart dysfunction. The spleen, adrenal glands, kidneys and pancreas are grossly unremarkable. There is no hydronephrosis. There is a moderate amount stool within the rectum. Neville balloon is present within the bladder. Extensive sigmoid diverticulosis is noted without definite evidence for acute diverticulitis. No pneumatosis, free air or portal venous gas is present. IMPRESSION: 1. Exam significantly compromised by motion artifact. 2. Heterogeneity of the liver parenchyma which may be due to right heart dysfunction. 3. Moderate amount stool within the rectum. 4. Extensive sigmoid diverticulosis without convincing evidence for acute diverticulitis although sensitivity is diminished on this study. 5. Cholelithiasis. CT ANGIOGRAPHY OF THE CHEST, PULMONARY EMBOLUS PROTOCOL CLINICAL HISTORY: Shortness of breath. Evaluate for pulmonary embolus. COMPARISON STUDY: Chest radiograph December 25, 2019 and February 28, 2020. TECHNIQUE: Following IV administration of 120 mL of Optiray-320, helical axial images of the chest were obtained utilizing the pulmonary embolus protocol. Maximal intensity projections and sagittal and coronal reformats were viewed on an independent 3D workstation. IV contrast was administered without complication. Automated exposure control was utilized for the study. A dose lowering technique was utilized adhering to the principles of ALARA. CT DOSE: 1469.48 mGycm FINDINGS: No pulmonary emboli are identified although this exam is mildly compromised by motion artifact. Moderate cardiomegaly is noted. There is no pericardial effusion. 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 Aortic opacification is suboptimal but there is no evidence for dissection on this exam. Moderate bilateral pleural effusions are noted. There is no pneumothorax. Lungs are suboptimally assessed given respiratory motion. Groundglass opacities and interlobular septal thickening within the lungs are noted. There is extensive airspace opacity within the right upper lobe and superior segment of the right lower lobe. Left lower lobe opacity favors atelectasis. No suspicious osseous lesions within bony thorax are noted. Several mildly enlarged mediastinal lymph nodes are noted. These measure up to 1.4 cm in short axis diameter. IMPRESSION: 1. No pulmonary emboli identified although exam mildly compromised by respiratory motion. 2. Moderate bilateral pleural effusions. Left lower lobe opacity favors atelectasis although consolidation could appear similar. 3. Interlobular septal thickening groundglass opacity within the lungs consistent with pulmonary edema. Extensive space opacity within the right upper lobe and superior segment of the right lower lobe favors asymmetric alveolar edema however pneumonia could appear similar. 4. Moderate cardiomegaly. 5. 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 XR chest 1V portable HISTORY: SEPSIS COMPARISON: Chest 12/25/2019. FINDINGS: No pneumothorax. The heart is mildly enlarged. Progressive interstitial and vascular thickening with right perihilar hazy airspace opacities. This is consistent with moderate pulmonary edema. There are small bilateral pleural effusions. IMPRESSION: Interval development of moderate pulmonary edema and small bilateral pleural effusions. CT head/brain wo con CLINICAL HISTORY: 89 years-old Female presenting with altered mental status. TECHNIQUE: Multidetector CT imaging of the head was performed without the use of intravenous contrast. IV contrast: None. One or more dose lowering techniques were used consistent with the principles of ALARA (as low as reasonably achievable), including automatic exposure control, mA or kV adjustment to individual patient size, and/or use of iterative reconstruction. COMPARISON: 12/25/2019. CT DOSE (mGy.cm): The estimated cumulative dose is 1459.56 mGycm. FINDINGS: Taximeter Repairer topogram: Unremarkable. Proportional ventricular and sulcal prominence, likely age-related parenchymal volume loss. No hemorrhage. Periventricular and subcortical white matter hypoattenuation, nonspecific but likely indicative of chronic small vessel ischemic change. Old lacunar infarct in the left thalamus, unchanged. No acute territorial infarct. No mass effect or midline shift. No extra-axial fluid collection. Paranasal sinuses and mastoid air cells clear. Calvarium intact. Absent [place] lenses. IMPRESSION: 1. 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 No acute intracranial abnormality. ECG Additional Comments: 28-FEB-2020 08:29:57 [facility]-EDSTAT ROUTINE RETRIEVAL Poor data quality, interpretation may be adversely affected Atrial fibrillation with rapid ventricular response with premature ventricular or aberrantly conducted complexes Anteroseptal infarct , age undetermined Marked ST abnormality, possible inferior subendocardial injury Abnormal ECG No previous ECGs available 25mm/s 10mm/mV 150Hz 9.0.9 12SL 241 GENE: 3 Referred by: [place] [facility] Unconfirmed Vent. rate 126 BPM OH interval * ms QRS duration 96 ms QT/QTc 316/457 ms P-R-T axes * 28 183 Code Status & VTE Plan Code Status DNR/DNI - discussed with the daughter, Susie, who has a copy of the living will/advanced directive VTE Prophylaxis Plan VTE Prophylaxis will be ordered: Yes Supervising Physician Co-Signing Physician Notes Patient was seen and examined independently I discussed the case with Bee Rubalcava PA-C I reviewed pertinent past medical social family history and also the plan of care and agree with the plan of care. Any exceptions will be noted below Patient presented with acute respiratory failure with hypoxia from the shelter. She has history of aortic valve disease and A. fib. She appears to have pulmonary edema on chest x-ray with bilateral pleural effusions. This could be from a rapid ventricular rate in association with aortic stenosis. Patient is attempting with diuresis and being supported with her ventilation with BiPAP. I spoke to her son told her her about her mortal condition the son confirms she is DNR. He is aware that she may pass if we cannot remedy her acute hypoxic respiratory failure. Part of the issue is she is not being tolerant of the BiPAP mask. We will continue to follow her closely but as per pulmonary consultation note palliative care may be her best approach she does not begin to respond to diuresis. Subsequently she will be given nitroglycerin paste and Lasix with attempt to preload photo producer. Her physical exam shows her to be lethargic not following commands cardiac exam is tachycardic regular systolic murmur lungs have coarse breath sounds throughout decreased breath sounds at the bases PG Care Time/CCT Total # of Minutes Spent Total Time Spent with Patient: Total time spent is greater than 50% in coordination of care (as documented) at patient's floor/unit and/or counseling patient: Coding Level of Care Code 24198 Initial Inpt Care Lvl 3 Diagnoses Acute respiratory failure with hypoxia J96.01 Pleural effusion J90 Atrial fibrillation I48.91 Elevated troponin R79.89 Recurrent UTI N39.0 Hypertension I10 GERD without esophagitis K21.9 Constipation K59.00 Vitamin D deficiency E55.9 Vitamin B12 deficiency E53.8 Postherpetic neuralgia B02.29 Hyponatremia E87.1 Sarcopenia M62.84 Hypokalemia E87.6 DVT prophylaxis Z29.9
[2020-02-28] MEDS ORDERED: INFLUENZA ADMINISTRATION CHARGE ONE (12:42)
[2020-02-28] MEDS ORDERED: INFLUENZA VACCINE HIGH DOSE 65+ 0.5 ML SYR IM ONE (12:42)
[2020-02-28] MEDS ORDERED: PNEUMOCOCCAL POLYSACCHARIDES 25 MCG/0.5 ML VIAL/SYR IM ONE (12:42)
[2020-02-28] MEDS ORDERED: PNEUMOCOCCAL ADMINISTRATION CHARGE ONE (12:42)
[2020-02-28] MEDS: POTASSIUM CHLORIDE 10 MEQ / 100ML WTR IV SCH ×3 (13:22→15:30)
[2020-02-28] MEDS ORDERED: LORazepam 0.5 MG/1 ML VIAL IV STA (13:57)
--- NOTE | 2020-02-28 16:10 | Electrocardiogram Report ---
Test Reason : Blood Pressure : / mmHG Vent. Rate : 126 BPM Atrial Rate : 119 BPM P-R Int : 000 ms QRS Dur : 096 ms QT Int : 316 ms P-R-T Axes : 000 028 183 degrees QTc Int : 457 ms Poor data quality, interpretation may be adversely affected Atrial fibrillation with rapid ventricular response with premature ventricular or aberrantly conducte d complexes Anteroseptal infarct , age undetermined Marked ST abnormality, possible inferior subendocardial injury Abnormal ECG No previous ECGs available Confirmed by Jeff aMssey ([id number]) on 02/28/2020 4:10:38 PM Referred By: Edison Roach [place] Confirmed By:Gerry Massey
--- NOTE | 2020-02-28 16:16 | Pulmonary Consultation ---
Date of Consultation February 28, 2020 Assessment & Plan (1) Bilateral pleural effusion: This is a new effusions per report of patient's daughter as relayed to nursing At this time patient is anticoagulated with Xarelto We will continue to follow patient and suggested Xarelto be held in the event that family later decides that thoracentesis would be appropriate Last dose of Xarelto was 02/27/2020 Suggest furosemide to try and move extravascular fluid (2) Hypoxia: Patient has presumed pneumonia as well as bilateral pleural effusions COVID PCR is negative She is also in atrial fibrillation with rapid ventricular response At this point we will have to continue to monitor effusions as patient is anticoagulated on Xarelto Recommend IV furosemide for pulmonary edema and follow Agree with treatment for pneumonia with antibiotics Check repeat chest x-ray in the morning (3) Pulmonary edema: Patient apparently started on BiPAP due to shortness of breath and agitation She was given lorazepam for agitation and currently is unresponsive Although patient does not have hypercapnia, BiPAP may help with pulmonary edema and certainly lend pulmonary support As patient becomes more responsive, she may benefit from high flow oxygen in lieu of BiPAP Chronicity: acute Qualified Code(s): J81.0 - Acute pulmonary edema (4) Atrial fibrillation with rapid ventricular response: Continue beta-blockade Patient has been on Xarelto at home Would hold Xarelto and consider heparin drip as patient currently has rapid ventricular response INR is 1.2 Follow on telemetry Thank you very much for including us in the care of this patient. Please refer to Dr. Hendricks's addendum for further recommendations. Dr. Figueroa will be taking over the pulmonary service tomorrow for the weekend. We will continue to follow along with you with this patient. Supervising Physician Co-Signing Physician Notes Patient seen and examined with Andrea lund PA-C. I agree with his assessment and plan aside for any additions/exceptions noted: 89-year-old female with a history of atrial fibrillation, heart failure and hypertension presenting to the hospital due to altered mental status and hypoxemic respiratory failure. CT chest demonstrated moderate sized pleural effusions and a left lower lobe opacity. There is also evidence of interlobular septal thickening and extensive opacity within the right upper lobe and superior segment of the right lower lobe. Apparently, there has been discussion with the family and the family is indicating that they would like a more palliative approach to the patient's care. I agree with this approach and I think given the patient's current presentation and age, that a more palliative/hospice approach is prudent. Upon my exam she was unresponsive with pinpoint pupils and very tachypneic on BiPAP. I do not think that a thoracentesis at this time and change her management or prognosis. I would recommend Lasix as a palliative measure. Antibiotics are reasonable as well. COVID testing was negative. Pulmonary will sign off. Please call us with questions. Thank you. History of Present Illness History of Present Illness Attending: Dr. Hendricks This is an 89-year-old female from [facility]. She started having some confusion and disorientation 2 days ago. She presented to the emergency room for further evaluation treatment and was ruled out for COVID- 19. She was found to have bilateral pleural effusions and we were asked to comment regarding those. On my examination of the patient in the emergency room in room 89, she was completely unresponsive other than some irritation from flicking her eyelashes bilaterally. She had no painful stimuli response. She was unable to give me any review of systems or past medical history. I did speak with the nurse who indicated that she has spoken with the patient's daughter as well as the hospitalist team admitting the patient. Initially it was relayed to the pulmonary team the patient was to be a comfort measure only patient. However, I did speak with the hospitalist team and they indicated that they had 2 discussions with the patient's daughter today. Patient is to be treated but if she were to decline significantly she should be DNR/DNI and at that time will have further discussion about and care management. On examination the patient has bilateral upper field rhonchi and decreased breath sounds bilaterally at the bases. Blood pressure is 119/91. Heart rate is 110. Respiratory rate is 17 and she is currently on BiPAP. Allergies Allergy/AdvReac Type Severity Reaction Status Date / Time Quinidine-Quinine Analogues Allergy Severe Anaphylaxis Verified 02/28/20 08:50 (Cincho Sulfa (Sulfonamide Allergy Severe HIVES Verified 02/28/20 08:50 Antibiotics) tetracycline Allergy Mild GI SYMPTOMS Verified 02/28/20 08:50 tramadol AdvReac Cognitive Verified 02/28/20 08:50 symptoms Home Medications Home Medications Medication Instructions Recorded Confirmed Type ascorbic acid (vitamin C) 500 mg 1 gm PO BID tab 09/11/19 02/28/20 History tablet metoprolol tartrate 25 mg tablet 25 mg PO BID #180 tab 09/24/19 02/28/20 Rx cyanocobalamin (vitamin B-12) 1,000 mcg SL DAILY@0800 #90 tab 10/09/19 02/28/20 History 1,000 mcg sublingual tablet levalbuterol tartrate 45 2 puffs INH Q4H PRN #15 gm 12/05/19 02/28/20 Rx mcg/actuation aerosol inhaler cholecalciferol (vitamin D3) 125 5,000 units PO DAILY@1600 #30 tab 12/22/19 02/28/20 History mcg (5,000 unit) tablet ferrous sulfate 325 mg (65 mg 325 mg PO BID #60 tab 12/22/19 02/28/20 History iron) tablet duloxetine 20 mg PO DAILY@0800 12/25/19 02/28/20 History pantoprazole 40 mg PO DAILY@0800 12/25/19 02/28/20 History rivaroxaban 15 mg PO DAILY@1600 12/25/19 02/28/20 History senna 8.6 mg PO BID PRN 12/25/19 02/28/20 History acetaminophen 325 mg tablet 650 mg PO Q4H PRN tab 01/01/20 02/28/20 History dextromethorphan-guaifenesin 10 5 ml PO Q4H PRN ml 01/01/20 02/28/20 History mg-100 mg/5 mL oral liquid docusate sodium 100 mg capsule 100 mg PO BID cap 01/01/20 02/28/20 History ondansetron HCl 4 mg tablet 4 mg PO Q8H PRN #90 tab 01/22/20 02/28/20 Rx nitrofurantoin macrocrystal 100 mg 100 mg PO DAILY@0800 #90 cap 02/12/20 02/28/20 Rx capsule furosemide 20 mg PO DAILY@0800 02/28/20 02/28/20 History losartan-hydrochlorothiazide 0.5 tab PO DAILY@0800 02/28/20 02/28/20 History Patient History Medical History Anemia, B12 deficiency (Chronic) Anticoagulant long-term use (Chronic) Hypertension (Chronic) Left knee pain (Chronic) Positive Helicobacter pylori serology (Chronic) Postherpetic neuralgia (Chronic) Recurrent UTI (Chronic) Spinal stenosis (Chronic) Vitamin B12 deficiency (Chronic) Vitamin D deficiency (Chronic) Surgical History H/O colonoscopy 04/03/15 - diverticulosis, internal hemorrhoids H/O esophagogastroduodenoscopy 04/02/15 - gastritis, gastric erosions, hiatal hernia H/O hernia repair (Resolved) History of ankle surgery History of cataract surgery (Resolved) Hx of tonsillectomy (Resolved) Family History Mother Diabetes Myocardial infarction Brother Lung disease Daughter Colon cancer Denies family history of Ovarian cancer Prostate cancer Breast cancer Social History Preferred Language: Cambodian Communication Ability: Effective Communication Ability Comment: altered mental status, Visual Impairment: No Limitations Hearing Ability: Normal [employer] Required: No Beliefs That Will Affect Care: None Current Living Situation: Personal Care Facility current occupational status: retired Other Information That Helps Us Care for You: No Feels Safe at Home: Yes Safety Concerns: Feels Safe At This Time Safety Concerns Comment: weakness increased, started using wheelchair Smoking Status: Never smoker Do You Dip or Chew Tobacco: No ; Second Hand Exposure: No ; Tobacco Cessation Education Requested by Patient: No Hx Alcohol Use: No Hx Substance Use: No Review of Systems Review of Systems: Unobtainable due to cognitive status Physical Exam Physical Exam: GENERAL : Patient is unresponsive and currently on BiPAP. EYES: No icterus, gaze conjugate. Pupils are fixed and pinpoint NOSE: No evidence of epistaxis. MOUTH: No lesions or candidiasis. Mucosa appears dry. BiPAP mask is in place with minimal leak NECK: Supple LUNGS: Bilateral upper field rhonchi. Bases are diminished bilaterally. No appreciation of bronchospasm HEART: Regular, rate at 110 ABDOMEN: Soft, NT, ND, BS Present EXTREMITIES: No LE edema, pedal pulses intact and equal bilaterally. Feet are cool to touch NEURO: Patient is unresponsive. She is on BiPAP therapy. She did receive Lorazepam prior to my examination. Results & Data Results & Data ([facility]) Vital Signs (Past 12 Hours) Vital Signs Temp Pulse Pulse Resp BP BP Pulse Ox 02/28/20 15:52 98 02/28/20 15:38 110 H 17 100 02/28/20 15:30 108 H 20 119/91 99 02/28/20 14:16 115 H 20 133/96 100 02/28/20 13:00 95 H 20 126/92 97 02/28/20 12:30 95 H 20 105/65 95 02/28/20 12:00 110 H 20 111/77 96 02/28/20 11:30 114 H 99 H 16 100/66 100 02/28/20 11:17 119 H 22 88 L 02/28/20 11:00 105 H 26 H 104/72 88 L 02/28/20 10:44 113 H 26 H 122/87 87 L 02/28/20 09:05 90 02/28/20 08:20 36.7 C 136 H 28 H 155/118 H 73 L Laboratory Results 02/28/20 08:35 02/28/20 08:35 INR 1.2 (0.9-1.1) H 02/28/20 08:[address] ANGIOGRAPHY OF THE CHEST, PULMONARY EMBOLUS PROTOCOL CLINICAL HISTORY: Shortness of breath. Evaluate for pulmonary embolus. COMPARISON STUDY: Chest radiograph December 25, 2019 and February 28, 2020. TECHNIQUE: Following IV administration of 120 mL of Optiray-320, helical axial images of the chest were obtained utilizing the pulmonary embolus protocol. Maximal intensity projections and sagittal and coronal reformats were viewed on an independent 3D workstation. IV contrast was administered without complication. Automated exposure control was utilized for the study. A dose lowering technique was utilized adhering to the principles of ALARA. CT DOSE: 1469.48 mGycm FINDINGS: No pulmonary emboli are identified although this exam is mildly c ompromised by motion artifact. Moderate cardiomegaly is noted. There is no pericardial effusion. 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 Aortic opacification is suboptimal but there is no evidence for dissection on this exam. Moderate bilateral pleural effusions are noted. There is no pneumothorax. Lungs are suboptimally assessed given respiratory motion. Groundglass opacities and interlobular septal thickening within the lungs are noted. There is extensive airspace opacity within the right upper lobe and superior segment of the right lower lobe. Left lower lobe opacity favors atelectasis. No suspicious osseous lesions within bony thorax are noted. Several mildly enlarged mediastinal lymph nodes are noted. These measure up to 1.4 cm in short axis diameter. IMPRESSION: 1. No pulmonary emboli identified although exam mildly compromised by respiratory motion. 2. Moderate bilateral pleural effusions. Left lower lobe opacity favors atelectasis although consolidation could appear similar. 3. Interlobular septal thickening groundglass opacity within the lungs consistent with pulmonary edema. Extensive space opacity within the right upper lobe and superior segment of the right lower lobe favors asymmetric alveolar edema however pneumonia could appear similar. 4. Moderate cardiomegaly. 5. 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 Electronically signed by: Bruno Martel M.D. 02/28/2020 10:52 AM PG Care Time/CCT Total # of Minutes Spent Total Time Spent with Patient: Total time spent is greater than 50% in coordination of care (as documented) at patient's floor/unit and/or counseling patient: 40 minutes Coding Level of Care Code 59253 Initial Inpt Care Lvl 3 Diagnoses Bilateral pleural effusion J90 Hypoxia R09.02 Pulmonary edema J81.0 Chronicity: acute Atrial fibrillation with rapid ventricular response I48.91
[2020-02-28] MEDS ORDERED: ACETAMINOPHEN 325 MG TAB PO PRN (17:50)
[2020-02-28] MEDS ORDERED: LEVALBUTEROL TARTRATE 15 GM HFA.AER.AD INH PRN (17:50)
[2020-02-28] MEDS ORDERED: ONDANSETRON INJ 2 MG/ML 2 ML VIAL IV PRN (17:50)
[2020-02-28] MEDS ORDERED: POTASSIUM CHLORIDE 10 MEQ / 100ML WTR IV STA (17:50)
[2020-02-28 18:32] LABS: Base Excess ABG 5.6 mEq/L (-9-1.8); HCO3 ABG 30 mmol/L (19-24); Oxygen Saturation ABG 97.8 % (90-95); PCO2 ABG 41 mmHg (35-46); PO2 ABG 101 mmHg (80-95); pH ABG 7.48 (7.35-7.45)
[2020-02-28 18:35] LABS: Allen Test POS (Pos)
[2020-02-28 18:46] LABS: C Reactive Protein 1.29 mg/dl (0-0.29); Troponin I 1.16 ng/ml (0-0.045)
[2020-02-28 18:47] LABS: D Dimer 680 ug/L FEU (0-500)
[2020-02-28] MEDS ORDERED: GUAIFENESIN/DEXTROM SYRUP 100MG/10MG 5ML UDC PO PRN (19:00)
[2020-02-28] MEDS ORDERED: ONDANSETRON 4 MG OD TAB PO PRN (19:02)
[2020-02-28] MEDS: POTASSIUM CHLORIDE / WTR 10 MEQ/100 ML PLCT IV SCH ×2 (19:28→23:21)
[2020-02-28] MEDS: RIVAROXABAN 15 MG TAB PO SCH (19:29)
[2020-02-28] MEDS: CHOLECALCIFEROL 1,000 UNITS 25 MCG TAB PO SCH (19:29)
[2020-02-28] MEDS: NITROGLYCERIN 2% OINTMENT 30GM TUBE EXT SCH (19:41)
[2020-02-28 21:18] LABS: BUN Creatinine Ratio 17.9 (10-20); Calcium 8.9 mg/dl (8.5-10.1); Creatinine Clr Calc Pharmacy 48.4 ml/min; Est GFR (African American) 89.9; Est GFR (Non-African American) 77.6; Potassium 4.1 mmol/L (3.5-5.1)
[2020-02-28] MEDS ORDERED: ENOXAPARIN INJ 60 MG/0.6 ML SYR SQ SCH (22:30)
[2020-02-28] MEDS: DOCUSATE SODIUM 100 MG CAP PO SCH (22:50)
[2020-02-28] MEDS: FERROUS SULFATE 325 MG TAB PO SCH (22:50)
[2020-02-28] MEDS: METOPROLOL TARTRATE 25 MG TAB PO SCH (22:51)
[2020-02-28] MEDS: ASCORBIC ACID 500 MG TAB PO SCH (22:51)
[2020-02-28] MEDS ORDERED: Nursing to Pharmacy Communication ONE (22:59)
[2020-02-29] MEDS: NITROGLYCERIN 2% OINTMENT 30GM TUBE EXT SCH ×3 (01:58→15:04)
[2020-02-29] MEDS ORDERED: METOPROLOL TARTRATE 1 MG/ML VIAL IV STA (03:09)
[2020-02-29] MEDS ORDERED: METOPROLOL TARTRATE 1 MG/ML VIAL IV ONE (03:14)
[2020-02-29 06:28] LABS: Hematocrit (blood only) 36.9 % (37-47); Hemoglobin 12.7 g/dL (12.0-16.0); Mean Corpuscular Hemoglobin 33.2 pg (25-34); Mean Corpuscular Hgb Conc 34.4 g/dL (32-36); Mean Corpuscular Volume 96.3 fL (80-100); Mean Platelet Volume 9.3 fL (7.4-10.4); Platelet Count 119 K/uL (130-400); RDW Coefficient of Variation 14.1 % (11.5-14.5); RDW Standard Deviation 49.5 fL (36.4-46.3); Red Blood Count 3.83 M/uL (4.2-5.4); White Blood Count 9.82 K/uL (4.8-10.8)
[2020-02-29 07:07] LABS: BUN Creatinine Ratio 18.1 (10-20); Calcium 8.8 mg/dl (8.5-10.1); Creatinine Clr Calc Pharmacy 39.2 ml/min; Est GFR (African American) 71.4; Est GFR (Non-African American) 61.6; Potassium 4.1 mmol/L (3.5-5.1)
[2020-02-29 07:10] LABS: Bilirubin,Total 1.1 mg/dl (0.2-1); Globulin 3.1 gm/dl (2.5-4.0); Total Protein 6.1 gm/dl (6.4-8.2)
--- NOTE | 2020-02-29 08:19 | Hospitalist Progress Note ---
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 According to Dr Massey will not (3) Pleural effusion: - Pulm consulted for possible thoracentesis,none planned at this time as above (4) Atrial fibrillation: - On xarelto 15 mg daily-resume 03/01 echo with significant mitral and aortic valve disease along with 5.2 ascending aortic aneurysm. - Possible decompensated heart failure in the setting of pulmonary edema/pleural effusions? Pt with hx of aortic valve dysfunction, (5) Elevated troponin: - Trop elevated at 0.526->1->0.6 - EKG reviewed likely demand ischemia from hypoxia (6) Recurrent UTI: - hx of such - UA appears to be contaminated here, - Had UA sent earlier this week for concern for UTI and came back negative. Pt on nitrofurantoin all the time for prevention per PCP, hold for now while getting zosyn IV. (7) Hypertension: -Continue losartan/HCTZ daily 100-25 mg, metoprolol tartrate 25 mg BID, holding p.o. Lasix, giving IV Lasix as above (8) GERD without esophagitis: -Continue pantoprazole (9) Constipation: -Chronic, nursing reports from [facility] that patient had large dark bowel movement this morning during altered mental status, possibly incontinent of stool, heme negative here in the ER. - Does take senna plus and docusate 100 mg twice daily for chronic constipation (10) Vitamin D deficiency: -Continue supplementation (11) Vitamin B12 deficiency: -Continue supplementation (12) Postherpetic neuralgia: -no issues at this time (13) Hyponatremia: -sodium has improved will follow especially as we adjust her lasix (14) Sarcopenia: -Albumin 3.3 on admission, establish increased protein supplementation with dietary intake once more awake (15) Hypokalemia: -Potassium of 3.2 on admission, will replete via IV (16) DVT prophylaxis: - Adelina parrish resumes CODE: DNR/DNI- left mnessage for bradley 02/28 Admission and Anticipated Discharge Date Admission Date: February 28, 2020 Results & Data Results & Data ([facility]) Vital Signs (Past 12 Hours) Vital Signs Temp Pulse Pulse Resp BP BP BP 02/29/20 07:07 79 17 02/29/20 04:05 97.9 F 123 H 18 115/88 02/29/20 03:21 124 H 115/88 02/29/20 00:25 97.7 F 99 H 18 121/81 02/29/20 00:00 02/28/20 23:59 106 H 02/28/20 21:30 98.2 F 106 H 16 110/75 Pulse Ox Pulse Ox 02/29/20 07:07 98 02/29/20 04:05 96 02/29/20 03:21 02/29/20 00:25 97 02/29/20 00:00 95 02/28/20 23:59 02/28/20 21:30 97 PG Care Time/CCT Total # of Minutes Spent Total Time Spent with Patient: Total time spent is greater than 50% in coordination of care (as documented) at patient's floor/unit and/or counseling patient: Coding Level of Care Code 97907 Subseq Hosp Care Lvl 3 Diagnoses Acute respiratory failure with hypoxia J96.01 Aortic aneurysm, thoracic I71.2 Pleural effusion J90 Atrial fibrillation I48.91 Atrial fibrillation type: unspecified Elevated troponin R79.89 Recurrent UTI N39.0 Hypertension I10 GERD without esophagitis K21.9 Constipation K59.00 Vitamin D deficiency E55.9 Vitamin B12 deficiency E53.8 Postherpetic neuralgia B02.29 Hyponatremia E87.1 Sarcopenia M62.84 Hypokalemia E87.6 DVT prophylaxis Z29.9 (1) Atrial fibrillation Atrial fibrillation type: unspecified Qualified Code(s): I48.91 - Unspecified atrial fibrillation
[2020-02-29] MEDS ORDERED: INFLUENZA VIRUS QUAD VACCINE 0.5 ML SYR IM ONE (09:00)
[2020-02-29] MEDS ORDERED: INFLUENZA ADMINISTRATION CHARGE ONE (09:00)
[2020-02-29] MEDS: PANTOprazole 40 MG TAB PO SCH (09:41)
[2020-02-29] MEDS: DULOXETINE HCL 20 MG CAP PO SCH (09:41)
[2020-02-29] MEDS: LOSARTAN/HCTZ 50/12.5MG TAB PO SCH (09:41)
[2020-02-29] MEDS: FERROUS SULFATE 325 MG TAB PO SCH ×2 (09:42→21:45)
[2020-02-29] MEDS: ASCORBIC ACID 500 MG TAB PO SCH ×2 (09:42→21:44)
[2020-02-29] MEDS: METOPROLOL TARTRATE 25 MG TAB PO SCH ×3 (09:42→21:45)
[2020-02-29] MEDS: DOCUSATE SODIUM 100 MG CAP PO SCH ×2 (09:42→21:46)
[2020-02-29] MEDS: CYANOCOBALAMIN 500 MCG TABLET (VITAMIN B-12) PO SCH (09:42)
--- NOTE | 2020-02-29 10:07 | XCELERA ---
[id number]
[2020-02-29] MEDS ORDERED: FUROSEMIDE 40 MG in SYRINGE 0 ML IV ONE (12:15)
[2020-02-29] MEDS ORDERED: PIPERACILLIN/TAZOBACTAM 4.5 GM in DEXTROSE 5% 100 ML IV STA (14:02)
--- NOTE | 2020-02-29 14:52 | Cardiology Consultation ---
Date of Consultation February 29, 2020 Assessment & Plan (1) Atrial fibrillation with rapid ventricular response: She apparently has a history of atrial fibrillation. Presumably this is permanent atrial fibrillation based on her echocardiogram. It seems she has been maintained on metoprolol tartrate 25 milligrams twice daily. Her ventricular rates are variable here in the hospital but perhaps with improvement in her pulmonary edema and overall clinical condition she will maintain reasonable rate control on her outpatient dose. A heart rate around 100 certainly adequate in her circumstance. If she continues to have elevated heart rates despite clinical improvement, her dose of metoprolol can be slightly increased. We must be cautious with large increases in antihypertensives given her valvular heart disease. She can be maintained on her current dose of Xarelto. This is dosed ap propriately according to her renal function. (2) Elevated troponin: She has mildly elevated cardiac biomarkers. I do not believe this is consistent with a recent acute coronary syndrome. She undoubtedly has an element of coronary disease. She was noted to be hypoxic as well the time of presentation. This may result in some demand ischemia. I do not believe this requires further evaluation the absence of new chest discomfort or objective evidence of ischemia during her hospitalization. (3) Acute respiratory failure with hypoxia: It seems likely that a good portion of her dyspnea and hypoxia was associated with pulmonary edema. She did undergo a good diuresis yesterday. He seems quite comfortable with respect to her breathing but still has an abnormal lung exam. Again, was be cautious regarding over aggressive diuresis in the setting of her valvular heart disease, but I think at least doubling her usual outpatient dose of Lasix may be reasonable start. Why she decompensated is unclear. Certainly she has significant valvular heart disease and is at risk of decompensation in that regard. Higher ventricular rates relative to her atrial fibrillation may also have contributed. (4) Valvular heart disease: She has significant mitral and aortic valvular disease consistent with her history of rheumatic heart disease. This valvular disease may in fact be responsible for her decompensation. I had an extensive discussion with her regarding the progressive nature of valvular heart disease, the likelihood that she will have additional hospitalizations related to heart failure as a consequence of her valvular heart disease and the significant morbidity mortality associated with fixing valvular heart disease in her demographic. Unfortunately, given her degree of mitral regurgitation she is not a good candidate for a TAVR. She also has a significant aortic aneurysm. Her valvular heart disease and aortic aneurysmal disease can only be addressed with surgical intervention. A surgery to correct these abnormalities is quite extreme and carries a very high risk of complication even for less frail individuals. I doubt she would tolerate or even be a good candidate for this procedure. I think engaging palliative care would be a good option in order to discuss the likely progression of this disease, the likely recurrent nature of hospitalizations relative to her valvular disease and to help form a plan of action moving forward. (5) Aortic aneurysm, thoracic: History of Present Illness Reason for Consultation: Atrial fibrillation, congestive heart failure Requesting Physician: Fran Attending Physician: Carlos Peters MD History of Present Illness The patient is an 89-year-old woman with a history of atrial fibrillation and valvular heart disease who was sent from the senior living for symptoms of a ltered mental status and hypoxia. Her initial evaluation was consistent with pulmonary edema. This was noted on chest x-ray and examination. There was some debate as to whether she has an infectious lung process as well. The patient was started on an antibiotic regimen and given diuretics. Was also noted to have atrial fibrillation with rapid ventricular response. An echocardiogram obtained today revealed severe aortic stenosis and moderate to severe mitral regurgitation with overall preserved LV systolic function. Patient has little recollection of how she ended up in the hospital. She states that usually she uses a wheelchair for transport. She does very little ambulation. It seems to be because of overall fatigue and frailty rather than exertional symptoms. She did not endorse symptoms of breathing difficulty either orthopnea or dyspnea on exertion. She has not had symptoms of chest discomfort. She has not been aware of any palpitations. She did not endorse symptoms of dizziness or lightheadedness and cannot recall having a syncopal episode. She does not believe that she has lower extremity edema. She does recall history of rheumatic heart disease as a child and has followed with a doctorate of chiropractic in the past. She cannot remember his name aware her follow- up had occurred previously. Currently she claims to be feeling well. She states she is quite tired and fat igued but did not complain chest pain, breathing trouble or palpitations. In fact she is not complaining of pain at all. She was able to eat lunch in reportedly was hungry by the nurse's report. Allergies Allergy/AdvReac Type Severity Reaction Status Date / Time Quinidine-Quinine Analogues Allergy Severe Anaphylaxis Verified 02/28/20 08:50 (Cincho Sulfa (Sulfonamide Allergy Severe HIVES Verified 02/28/20 08:50 Antibiotics) tetracycline Allergy Mild GI SYMPTOMS Verified 02/28/20 08:50 tramadol AdvReac Cognitive Verified 02/28/20 08:50 symptoms Home Medications Home Medications Medication Instructions Recorded Confirmed Type ascorbic acid (vitamin C) 500 mg 1 gm PO BID tab 09/11/19 02/28/20 History tablet metoprolol tartrate 25 mg tablet 25 mg PO BID #180 tab 09/24/19 02/28/20 Rx cyanocobalamin (vitamin B-12) 1,000 mcg SL DAILY@0800 #90 tab 10/09/19 02/28/20 History 1,000 mcg sublingual tablet levalbuterol tartrate 45 2 puffs INH Q4H PRN #15 gm 12/05/19 02/28/20 Rx mcg/actuation aerosol inhaler cholecalciferol (vitamin D3) 125 5,000 units PO DAILY@1600 #30 tab 12/22/19 02/28/20 History mcg (5,000 unit) tablet ferrous sulfate 325 mg (65 mg 325 mg PO BID #60 tab 12/22/19 02/28/20 History iron) tablet duloxetine 20 mg PO DAILY@0800 12/25/19 02/28/20 History pantoprazole 40 mg PO DAILY@0800 12/25/19 02/28/20 History rivaroxaban 15 mg PO DAILY@1600 12/25/19 02/28/20 History senna 8.6 mg PO BID PRN 12/25/19 02/28/20 History acetaminophen 325 mg tablet 650 mg PO Q4H PRN tab 01/01/20 02/28/20 History dextromethorphan-guaifenesin 10 5 ml PO Q4H PRN ml 01/01/20 02/28/20 History mg-100 mg/5 mL oral liquid docusate sodium 100 mg capsule 100 mg PO BID cap 01/01/20 02/28/20 History ondansetron HCl 4 mg tablet 4 mg PO Q8H PRN #90 tab 01/22/20 02/28/20 Rx nitrofurantoin macrocrystal 100 mg 100 mg PO DAILY@0800 #90 cap 02/12/20 02/28/20 Rx capsule furosemide 20 mg PO DAILY@0800 02/28/20 02/28/20 History losartan-hydrochlorothiazide 0.5 tab PO DAILY@0800 02/28/20 02/28/20 History Patient History Medical History (Updated 02/29/20 @ 14:41 by Lars Massey MD) Anemia, B12 deficiency (Chronic) Anticoagulant long-term use (Chronic) Hypertension (Chronic) Left knee pain (Chronic) Positive Helicobacter pylori serology (Chronic) Postherpetic neuralgia (Chronic) Recurrent UTI (Chronic) Spinal stenosis (Chronic) Vitamin B12 deficiency (Chronic) Vitamin D deficiency (Chronic) Surgical History H/O colonoscopy 04/03/15 - diverticulosis, internal hemorrhoids H/O esophagogastroduodenoscopy 04/02/15 - gastritis, gastric erosions, hiatal hernia H/O hernia repair (Resolved) History of ankle surgery History of cataract surgery (Resolved) Hx of tonsillectomy (Resolved) Family History Mother Diabetes Myocardial infarction Brother Lung disease Daughter Colon cancer Denies family history of Ovarian cancer Prostate cancer Breast cancer Social History Preferred Language: Romanian Communication Ability: Unable Visual Impairment: No Limitations Hearing Ability: Normal Polisher Eyeglass Frames Required: No Beliefs That Will Affect Care: None marital status: / Current Living Situation: Personal Care Facility current occupational status: retired Feels Safe at Home: Yes Safety Concerns Comment: weakness increased, started using wheelchair Smoking Status: Never smoker Second Hand Exposure: No ; Hx Alcohol Use: No Hx Substance Use: No Review of Systems Review of Systems: All systems reviewed & are unremarkable except as noted in HPI & below Physical Exam 2 Physical Exam: She is alert and oriented x3. Mood affect appear normal. She answered all questions appropriately. She was fatigued. She was somewhat forgetful at times. HEENT: Sclerae are anicteric. Pupils are equal and reactive to light and accommodation. Extraocular movements were intact. Neuro: Cranial nerves intact Neck: Examination of the submandibular region did not reveal any significant lymphadenopathy. Carotids are palpable bilaterally and free of bruits on auscultation. There was no evidence of jugular venous distention. The thyroid was not enlarged. Lungs: Crackles primarily in the left side with some reduced risk stones on the right base. No expiratory wheezing. Normal respiratory effort. Cardiac: The rhythm was irregular. S1 and S2 were normal. There are no murmurs on examination. The PMI was not markedly displaced on palpation. Abdomen: The abdomen was soft and nontender. Extremities: Patient has bilateral radial pulses that are equal in intensity. There is no evidence cyanosis or clubbing. There was no evidence of significant peripheral edema bilaterally. Skin: There are no rashes noted on examination today. Results & Data ([facility]) Vital Signs (Past 12 Hours) Vital Signs Temp Pulse Pulse Resp BP BP BP 02/29/20 11:54 36.6 C 101 H 19 128/76 02/29/20 08:07 36.7 C 99 H 18 116/75 02/29/20 08:00 79 02/29/20 07:07 79 17 02/29/20 04:05 36.6 C 123 H 18 115/88 02/29/20 03:21 124 H 115/88 Pulse Ox 02/29/20 11:54 95 02/29/20 08:07 98 02/29/20 08:00 02/29/20 07:07 98 02/29/20 04:05 96 02/29/20 03:21 Laboratory Results Abnormal Lab Results 02/28/20 02/28/20 02/28/20 08:35 16:50 18:10 WBC RBC Hgb Hct MCV MCH MCHC RDW Std Deviation RDW Coeff of Yemi Plt Count MPV ESR 4 D-Dimer ABG pH 7.48 H ABG pCO2 41 ABG pO2 101 H ABG HCO3 30 H ABG O2 Saturation 97.8 H ABG Base Excess 5.6 H Eddi Test POS Barometric Pressure 737.5 Oxygen Given 40% O2 Sodium Potassium Chloride Carbon Dioxide Anion Gap BUN Creatinine Est Cr Clr Drug Dosing Est GFR ( Amer) Est GFR (Non-Af Amer) BUN/Creatinine Ratio Glucose POC Glucose Lactate Calcium Total Bilirubin AST ALT Alkaline Phosphatase Troponin I C-Reactive Protein Total Protein Albumin Globulin Albumin/Globulin Ratio Nasal Screen MRSA (PCR) Negative 02/28/20 02/28/20 02/28/20 18:10 18:10 18:10 WBC RBC Hgb Hct MCV MCH MCHC RDW Std Deviation RDW Coeff of Yemi Plt Count MPV ESR D-Dimer 680 H* ABG pH ABG pCO2 ABG pO2 ABG HCO3 ABG O2 Saturation ABG Base Excess Eddi Test Barometric Pressure Oxygen Given Sodium Potassium Chloride Carbon Dioxide Anion Gap BUN Creatinine Est Cr Clr Drug Dosing Est GFR ( Amer) Est GFR (Non-Af Amer) BUN/Creatinine Ratio Glucose POC Glucose Lactate 0.9 Calcium Total Bilirubin AST ALT Alkaline Phosphatase Troponin I 1.160 H* C-Reactive Protein 1.29 H Total Protein Albumin Globulin Albumin/Globulin Ratio Nasal Screen MRSA (PCR) 02/28/20 02/29/20 02/29/20 20:31 01:41 06:14 WBC 9.82 RBC 3.83 L Hgb 12.7 Hct 36.9 L MCV 96.3 MCH 33.2 MCHC 34.4 RDW Std Deviation 49.5 H RDW Coeff of Yemi 14.1 Plt Count 119 L MPV 9.3 ESR D-Dimer ABG pH ABG pCO2 ABG pO2 ABG HCO3 ABG O2 Saturation ABG Base Excess Eddi Test Barometric Pressure Oxygen Given Sodium 127 L Potassium 4.1 D Chloride 87 L Carbon Dioxide 30 Anion Gap 10.0 BUN 12 Creatinine 0.68 Est Cr Clr Drug Dosing 48.4 Est GFR ( Amer) 89.9 Est GFR (Non-Af Amer) 77.6 BUN/Creatinine Ratio 17.9 Glucose 106 H POC Glucose Lactate Calcium 8.9 Total Bilirubin AST ALT Alkaline Phosphatase Troponin I 0.699 H* C-Reactive Protein Total Protein Albumin Globulin Albumin/Globulin Ratio Nasal Screen MRSA (PCR) 02/29/20 02/29/20 06:14 11:52 WBC RBC Hgb Hct MCV MCH MCHC RDW Std Deviation RDW Coeff of Yemi Plt Count MPV ESR D-Dimer ABG pH ABG pCO2 ABG pO2 ABG HCO3 ABG O2 Saturation ABG Base Excess Eddi Test Barometric Pressure Oxygen Given Sodium 128 L Potassium 4.1 Chloride 88 L Carbon Dioxide 31 Anion Gap 9.0 BUN 15 Creatinine 0.84 Est Cr Clr Drug Dosing 39.2 Est GFR ( Amer) 71.4 Est GFR (Non-Af Amer) 61.6 BUN/Creatinine Ratio 18.1 Glucose 114 H POC Glucose 105 H Lactate Calcium 8.8 Total Bilirubin 1.1 H AST 23 ALT 16 Alkaline Phosphatase 63 Troponin I C-Reactive Protein Total Protein 6.1 L Albumin 3.0 L Globulin 3.1 Albumin/Globulin Ratio 1.0 Nasal Screen MRSA (PCR) Diagnostic Findings CT of the chest did not reveal any acute pulmonary embolus. She was noted to have bilateral pleural effusions and possible infectious process. She had a thoracic aortic aneurysm measuring 5.2 centimeters. Echocardiogram performed today revealed overall preserved LV systolic function with severe aortic stenosis and moderate to severe mitral regurgitation. PG Care Time/CCT Total # of Minutes Spent Total Time Spent with Patient: Total time spent is greater than 50% in coordination of care (as documented) at patient's floor/unit and/or counseling patient: Coding Level of Care Code 45724 Initial Inpt Care Lvl 3 Diagnoses Atrial fibrillation with rapid ventricular response I48.91 Elevated troponin R79.89 Acute respiratory failure with hypoxia J96.01 Valvular heart disease I38 Aortic aneurysm, thoracic I71.2
[2020-02-29] MEDS: CHOLECALCIFEROL 1,000 UNITS 25 MCG TAB PO SCH (16:25)
[2020-02-29] MEDS ORDERED: cloNIDine HCL 0.1 MG TAB PO PRN (17:03)
[2020-02-29] MEDS: PIPERACILLIN/TAZOBACTAM 3.375 GM in DEXTROSE 5% 100 ML IV SCH (21:43)
[2020-02-29] MEDS ORDERED: ENOXAPARIN INJ 40 MG/0.4 ML SYR SQ SCH (22:30)
[2020-03-01] MEDS: PIPERACILLIN/TAZOBACTAM 3.375 GM in DEXTROSE 5% 100 ML IV SCH ×2 (04:02→12:13)
[2020-03-01 06:16] LABS: Hematocrit (blood only) 37.7 % (37-47); Hemoglobin 13.2 g/dL (12.0-16.0); Mean Corpuscular Hemoglobin 33.9 pg (25-34); Mean Corpuscular Volume 96.9 fL (80-100); Mean Platelet Volume 9.9 fL (7.4-10.4); Platelet Count 113 K/uL (130-400); RDW Coefficient of Variation 14.3 % (11.5-14.5); RDW Standard Deviation 49.8 fL (36.4-46.3); Red Blood Count 3.89 M/uL (4.2-5.4); White Blood Count 8.15 K/uL (4.8-10.8)
[2020-03-01 06:50] LABS: BUN Creatinine Ratio 18.9 (10-20); Calcium 8.8 mg/dl (8.5-10.1); Est GFR (African American) 66.6; Est GFR (Non-African American) 57.5; Potassium 3.9 mmol/L (3.5-5.1)
[2020-03-01 06:53] LABS: Albumin Globulin Ratio 0.9 (0.9-2); Globulin 3.4 gm/dl (2.5-4.0); Total Protein 6.4 gm/dl (6.4-8.2)
[2020-03-01] MEDS: ASCORBIC ACID 500 MG TAB PO SCH ×2 (08:29→20:02)
[2020-03-01] MEDS: LOSARTAN/HCTZ 50/12.5MG TAB PO SCH (08:29)
[2020-03-01] MEDS: METOPROLOL TARTRATE 25 MG TAB PO SCH ×2 (08:29→20:02)
[2020-03-01] MEDS: PANTOprazole 40 MG TAB PO SCH (08:29)
[2020-03-01] MEDS: FUROSEMIDE 40 MG TAB PO SCH (08:29)
[2020-03-01] MEDS: CYANOCOBALAMIN 500 MCG TABLET (VITAMIN B-12) PO SCH (08:30)
[2020-03-01] MEDS: FERROUS SULFATE 325 MG TAB PO SCH ×2 (08:30→20:01)
[2020-03-01] MEDS: DOCUSATE SODIUM 100 MG CAP PO SCH ×2 (08:30→20:01)
[2020-03-01] MEDS: DULOXETINE HCL 20 MG CAP PO SCH (08:30)
[2020-03-01] MEDS: CHOLECALCIFEROL 1,000 UNITS 25 MCG TAB PO SCH (15:47)
[2020-03-01] MEDS: RIVAROXABAN 15 MG TAB PO SCH (15:47)
--- NOTE | 2020-03-01 16:14 | Hospitalist Progress Note ---
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 According to Dr Massey will not (3) Pleural effusion: - Pulm consulted for possible thoracentesis,none planned at this time as above (4) Atrial fibrillation: - On xarelto 15 mg daily-resume 03/01 echo with significant mitral and aortic valve disease along with 5.2 ascending aortic aneurysm. - Possible decompensated heart failure in the setting of pulmonary edema/pleural effusions? Pt with hx of aortic valve dysfunction, (5) Elevated troponin: - Trop elevated at 0.526->1->0.6 - EKG reviewed likely demand ischemia from hypoxia (6) Recurrent UTI: - hx of such - UA appears to be contaminated here, - Had UA sent earlier this week for concern for UTI and came back negative. Pt on nitrofurantoin all the time for prevention per PCP, hold for now while getting zosyn IV. (7) Hypertension: -Continue losartan/HCTZ daily 100-25 mg, metoprolol tartrate 25 mg BID, holding p.o. Lasix, giving IV Lasix as above (8) GERD without esophagitis: -Continue pantoprazole (9) Constipation: -Chronic, nursing reports from [facility] that patient had large dark bowel movement this morning during altered mental status, possibly incontinent of stool, heme negative here in the ER. - Does take senna plus and docusate 100 mg twice daily for chronic constipation (10) Vitamin D deficiency: -Continue supplementation (11) Vitamin B12 deficiency: -Continue supplementation (12) Postherpetic neuralgia: -no issues at this time (13) Hyponatremia: -sodium has improved will follow especially as we adjust her lasix (14) Sarcopenia: -Albumin 3.3 on admission, establish increased protein supplementation with dietary intake once more awake (15) Hypokalemia: -Potassium of 3.2 on admission, will replete via IV (16) DVT prophylaxis: - Adelina parrish resumes CODE: DNR/DNI- left mnessage for bradley 02/28 Admission and Anticipated Discharge Date Admission Date: February 28, 2020 Subjective pt is much improved, more alert and awake, no chest pain, confused mild shortness of breath Review of Systems Review of Systems: Mild distress and fatigue no headache, blurry or double vision no speech or swallowing issues no chest pain, pressure or palpitations Mild some confusion shortness of breath, cough or wheezes no abdominal pain, nausea or vomiting, diarrhea or constipation no dysuria, hematuria or frequency no focal joint pain or swelling no back pain, CVA tenderness or radicular pain no bruising, bleeding or rashes no focal signs of weakness or numbness or altered sensation Some confusion Physical Exam Physical Exam: The patient appeared well nourished and normally developed. Vital signs as documented. Head exam is normocephalic atraumatic no scleral icterus Neck is without JVD, thyromegaly, or carotid bruits. Lungs are clear but decreased at the bases Cardiac exam irregular with loud systolic ejection murmurs Abdominal exam reveals normal bowel sounds, soft non tender, no masses Extremities are mildly edematous and both pedal pulses are normal. Neurologic exam is alert and oriented, no focal loss of strength or sensation Skin is without bruises or rashes Psychologically is with some confusion and likely early dementia Results & Data Results & Data ([facility]) Vital Signs (Past 12 Hours) Vital Signs Temp Pulse Pulse Resp BP BP Pulse Ox 02/29/20 15:46 97.7 F 89 18 115/71 92 02/29/20 11:54 97.9 F 101 H 19 128/76 95 02/29/20 08:07 98.1 F 99 H 18 116/75 98 02/29/20 08:00 79 02/29/20 07:07 79 17 98 PG Care Time/CCT Total # of Minutes Spent Total Time Spent with Patient: Total time spent is greater than 50% in coordination of care (as documented) at patient's floor/unit and/or counseling patient: Coding Level of Care Code 91891 Subseq Hosp Care Lvl 3 Diagnoses Acute respiratory failure with hypoxia J96.01 Aortic aneurysm, thoracic I71.2 Pleural effusion J90 Atrial fibrillation I48.91 Atrial fibrillation type: unspecified Elevated troponin R79.89 Recurrent UTI N39.0 Hypertension I10 GERD without esophagitis K21.9 Constipation K59.00 Vitamin D deficiency E55.9 Vitamin B12 deficiency E53.8 Postherpetic neuralgia B02.29 Hyponatremia E87.1 Sarcopenia M62.84 Hypokalemia E87.6 DVT prophylaxis Z29.9 (1) Atrial fibrillation Atrial fibrillation type: unspecified Qualified Code(s): I48.91 - Unspecified atrial fibrillation
--- NOTE | 2020-03-01 16:18 | Hospitalist Progress Note ---
Date of Service March 01, 2020 Assessment & Plan (1) Acute respiratory failure with hypoxia: Resolved negative COVID-19 acute hypoxia, respiratory distress, CT findings concerning for pneumonia and moderate bilateral effusions consider rapid afib with valvular heart disease resulting in HF and effusions patient continues to be improved we will transition oral medications - Consult pulmonary., no need for acute thoracentesis - given lasix 40 mg each day x2, will increase home dose from 20-40 03/01 (2) Aortic aneurysm, 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 According to Dr Massey will not surgical correction pursue (3) Pleural effusion: - Pulm consulted for possible thoracentesis,none planned at this time as above (4) Atrial fibrillation: - On xarelto 15 mg daily-resume 03/01 echo with significant mitral and aortic valve disease along with 5.2 ascending aortic aneurysm. - Possible decompensated heart failure in the setting of pulmonary edema/pleural effusions? Pt with hx of aortic valve dysfunction, (5) Elevated troponin: - Trop elevated at 0.526->1->0.6 - EKG reviewed likely demand ischemia from hypoxia (6) Recurrent UTI: - hx of such - UA appears to be contaminated here, - Had UA sent earlier this week for concern for UTI and came back negative. Pt on nitrofurantoin all the time for prevention per PCP, hold for now transition to oral antibiotics at this time. (7) Hypertension: -Continue losartan/HCTZ daily 100-25 mg, metoprolol tartrate 25 mg BID, restart oral Lasix at 40 mg a day on 03/01/2020 (8) GERD without esophagitis: -Continue pantoprazole (9) Constipation: -Chronic, nursing reports from [facility] that patient had large dark bowel movement this morning during altered mental status, possibly incontinent of stool, heme negative here in the ER. - Does take senna plus and docusate 100 mg twice daily for chronic constipation (10) Vitamin D deficiency: -Continue supplementation (11) Vitamin B12 deficiency: -Continue supplementation (12) Postherpetic neuralgia: -no issues at this time (13) Hyponatremia: -Improving daily continue to follow while instituting Lasix therapy (14) Sarcopenia: -Albumin 3.3 on admission, establish increased protein supplementation with dietary intake once more awake (15) Hypokalemia: Now replete (16) DVT prophylaxis: - tedronen, Xarelto resumes CODE: DNR/DNI- left mnessage for bradley 02/28 Admission and Anticipated Discharge Date Admission Date: February 28, 2020 Subjective Continues to improve every day remains mildly confused Patient is much improved, continues to be more alert and awake, no chest pain, Review of Systems Review of Systems: Mild distress and fatigue is confused at times no headache, blurry or double vision no speech or swallowing issues no chest pain, pressure or palpitations no shortness of breath, cough or wheezes no abdominal pain, nausea or vomiting, diarrhea or constipation no dysuria, hematuria or frequency no focal joint pain or swelling no back pain, CVA tenderness or radicular pain no bruising, bleeding or rashes no focal signs of weakness or numbness or altered sensation n Physical Exam Physical Exam: The patient appeared well Vital signs as documented. Lungs are clear decreased at the bases consistent with pleural effusions Cardiac exam, irregular tachycardic systolic murmur Abdominal exam reveals normal bowel sounds, soft non tender, no masses Extremities mildly edematous and both pedal pulses are normal. Neurologic exam is alert and oriented x2, no focal loss of strength or sensation Skin is without bruises or rashes Psychologically is with concerned for dementia mild confusion persists Results & Data Results & Data ([facility]) Vital Signs (Past 12 Hours) Vital Signs Temp Pulse Pulse Resp BP Pulse Ox 03/01/20 11:05 98.1 F 93 H 24 126/87 94 03/01/20 08:00 104 H 03/01/20 07:00 98.1 F 110 H 22 119/80 94 PG Care Time/CCT Total # of Minutes Spent Total Time Spent with Patient: Total time spent is greater than 50% in coordination of care (as documented) at patient's floor/unit and/or counseling patient: Coding Level of Care Code 41975 Subseq Hosp Care Lvl 3 Diagnoses Acute respiratory failure with hypoxia J96.01 Aortic aneurysm, thoracic I71.2 Pleural effusion J90 Atrial fibrillation I48.91 Atrial fibrillation type: unspecified Elevated troponin R79.89 Recurrent UTI N39.0 Hypertension I10 GERD without esophagitis K21.9 Constipation K59.00 Vitamin D deficiency E55.9 Vitamin B12 deficiency E53.8 Postherpetic neuralgia B02.29 Hyponatremia E87.1 Sarcopenia M62.84 Hypokalemia E87.6 DVT prophylaxis Z29.9 (1) Atrial fibrillation Atrial fibrillation type: unspecified Qualified Code(s): I48.91 - Unspecified atrial fibrillation
[2020-03-01] MEDS: AMOXICILLIN/CLAVULANATE 875 MG TAB PO SCH (17:58)
[2020-03-02 07:21] LABS: Hematocrit (blood only) 40.9 % (37-47); Hemoglobin 14.3 g/dL (12.0-16.0); Mean Corpuscular Hemoglobin 33.9 pg (25-34); Mean Corpuscular Volume 96.9 fL (80-100); Mean Platelet Volume 9.7 fL (7.4-10.4); Platelet Count 115 K/uL (130-400); RDW Coefficient of Variation 14.3 % (11.5-14.5); RDW Standard Deviation 50.6 fL (36.4-46.3); Red Blood Count 4.22 M/uL (4.2-5.4); White Blood Count 9.12 K/uL (4.8-10.8)
[2020-03-02 07:52] LABS: Albumin Level 3.1 gm/dl (3.4-5.0); BUN Creatinine Ratio 26.5 (10-20); Calcium 8.9 mg/dl (8.5-10.1); Creatinine Clr Calc Pharmacy 49.2 ml/min; Est GFR (African American) 90.3; Est GFR (Non-African American) 77.9; Potassium 3.6 mmol/L (3.5-5.1)
[2020-03-02 07:55] LABS: Albumin Globulin Ratio 0.9 (0.9-2); Bilirubin,Total 1.1 mg/dl (0.2-1); Globulin 3.6 gm/dl (2.5-4.0); Total Protein 6.7 gm/dl (6.4-8.2)
[2020-03-02] MEDS: ASCORBIC ACID 500 MG TAB PO SCH ×2 (07:59→20:28)
[2020-03-02] MEDS: FERROUS SULFATE 325 MG TAB PO SCH ×2 (07:59→20:27)
[2020-03-02] MEDS: AMOXICILLIN/CLAVULANATE 875 MG TAB PO SCH (07:59)
[2020-03-02] MEDS: CYANOCOBALAMIN 500 MCG TABLET (VITAMIN B-12) PO SCH (07:59)
[2020-03-02] MEDS: PANTOprazole 40 MG TAB PO SCH (07:59)
[2020-03-02] MEDS: DOCUSATE SODIUM 100 MG CAP PO SCH ×2 (07:59→20:26)
[2020-03-02] MEDS: DULOXETINE HCL 20 MG CAP PO SCH (07:59)
[2020-03-02] MEDS: LOSARTAN/HCTZ 50/12.5MG TAB PO SCH (08:00)
[2020-03-02] MEDS: METOPROLOL TARTRATE 25 MG TAB PO SCH ×2 (08:09→20:25)
[2020-03-02] MEDS: FUROSEMIDE 40 MG TAB PO SCH (08:09)
--- NOTE | 2020-03-02 15:00 | Hospitalist Progress Note ---
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 According to Dr Massey will not be a good candidate for open surgical correction due to comorbid disese process (3) Pleural effusion: - Pulm consulted for possible thoracentesis,none planned at this time as above (4) Atrial fibrillation: - On xarelto 15 mg daily-resume 03/01 echo with significant mitral and aortic valve disease along with 5.2 ascending aortic aneurysm. - Possible decompensated heart failure in the setting of pulmonary edema/pleural effusions? Pt with hx of aortic valve dysfunction, (5) Elevated troponin: - Trop elevated at 0.526->1->0.6 - EKG reviewed likely demand ischemia from hypoxia (6) Recurrent UTI: - hx of such - UA appears to be contaminated here, culture is negative - Had UA sent earlier this week for concern for UTI and came back negative. stop iv antibiotics, resume nitrofurantoin (7) Hypertension: -Continue losartan/HCTZ daily 100-25 mg, metoprolol tartrate 25 mg BID, restart oral Lasix at 40 mg a day on 03/01/2020 (8) GERD without esophagitis: -Continue pantoprazole (9) Constipation: -Chronic, nursing reports from [facility] that patient had large dark bowel movement this morning during altered mental status, possibly incontinent of stool, heme negative here in the ER. - Does take senna plus and docusate 100 mg twice daily for chronic constipation (10) Vitamin D deficiency: -Continue supplementation (11) Vitamin B12 deficiency: -Continue supplementation (12) Postherpetic neuralgia: -no issues at this time (13) Hyponatremia: -Improving daily continue to follow while instituting Lasix therapy (14) Sarcopenia: -Albumin 3.3 on admission, establish increased protein supplementation with dietary intake once more awake (15) Hypokalemia: Now replete (16) DVT prophylaxis: - Adelina parrish resumes CODE: DNR/DNI- left mnessage for bradley 02/28 Admission and Anticipated Discharge Date Admission Date: February 28, 2020 Subjective Patient is much improved, continues to be more alert and awake, no chest pain, pt still has some CAIN Review of Systems Review of Systems: Mild distress and fatigue no headache, blurry or double vision no speech or swallowing issues no chest pain, pressure or palpitations dyspnea on exertion, cough or wheezes no abdominal pain, nausea or vomiting, diarrhea or constipation no dysuria, hematuria or frequency no focal joint pain or swelling no back pain, CVA tenderness or radicular pain no bruising, bleeding or rashes no focal signs of weakness or numbness or altered sensation has some Dementia Physical Exam Physical Exam: The patient appeared stated age Vital signs as documented. Head exam is normocephalic atraumatic no scleral icterus Neck is without JVD, thyromegaly, or carotid bruits. Lungs are clear but diminished at the bases Cardiac exam, Rhythm is regular.. No murmurs, rubs or gallops. Abdominal exam reveals normal bowel sounds, soft non tender, no masses Extremities are mildly edematous and both pedal pulses are normal. Neurologic exam is alert and oriented x2, Skin is without bruises or rashes Psychologically is with concerns for dementia Results & Data Results & Data ([facility]) Vital Signs (Past 12 Hours) Vital Signs Temp Pulse Pulse Resp BP BP Pulse Ox 03/02/20 11:08 97.5 F L 109 H 20 127/84 93 03/02/20 08:00 98.1 F 116 H 97 H 22 124/92 92 03/02/20 03:41 98.1 F 110 H 17 135/84 95 PG Care Time/CCT Total # of Minutes Spent Total Time Spent with Patient: Total time spent is greater than 50% in coordina tion of care (as documented) at patient's floor/unit and/or counseling patient: Coding Level of Care Code 04607 Subseq Hosp Care Lvl 3 Diagnoses Acute respiratory failure with hypoxia J96.01 Aortic aneurysm, thoracic I71.2 Pleural effusion J90 Atrial fibrillation I48.91 Atrial fibrillation type: unspecified Elevated troponin R79.89 Recurrent UTI N39.0 Hypertension I10 GERD without esophagitis K21.9 Constipation K59.00 Vitamin D deficiency E55.9 Vitamin B12 deficiency E53.8 Postherpetic neuralgia B02.29 Hyponatremia E87.1 Sarcopenia M62.84 Hypokalemia E87.6 DVT prophylaxis Z29.9 (1) Atrial fibrillation Atrial fibrillation type: unspecified Qualified Code(s): I48.91 - Unspecified atrial fibrillation
[2020-03-02] MEDS: CHOLECALCIFEROL 1,000 UNITS 25 MCG TAB PO SCH (16:09)
[2020-03-02] MEDS: RIVAROXABAN 15 MG TAB PO SCH (16:09)
[2020-03-03] MEDS: METOPROLOL TARTRATE 25 MG TAB PO SCH ×2 (08:45→20:34)
[2020-03-03] MEDS: ASCORBIC ACID 500 MG TAB PO SCH ×2 (08:45→20:35)
[2020-03-03] MEDS: DOCUSATE SODIUM 100 MG CAP PO SCH ×2 (08:45→20:34)
[2020-03-03] MEDS: FERROUS SULFATE 325 MG TAB PO SCH ×2 (08:46→20:34)
[2020-03-03] MEDS: nitrofurantoin macrocrystaL 50 MG CAP PO SCH (08:46)
[2020-03-03] MEDS: LOSARTAN/HCTZ 50/12.5MG TAB PO SCH (08:47)
[2020-03-03] MEDS: DULOXETINE HCL 20 MG CAP PO SCH (08:47)
[2020-03-03] MEDS: CYANOCOBALAMIN 500 MCG TABLET (VITAMIN B-12) PO SCH (08:47)
[2020-03-03] MEDS: PANTOprazole 40 MG TAB PO SCH (08:48)
[2020-03-03] MEDS: SENNA 8.6 MG TAB PO PRN (08:49)
[2020-03-03] MEDS: FUROSEMIDE 40 MG TAB PO SCH (08:50)
[2020-03-03 11:38] LABS: Base Excess ABG 6.1 mEq/L (-9-1.8); HCO3 ABG 29 mmol/L (19-24); Oxygen Saturation ABG 97.1 % (90-95); PCO2 ABG 36 mmHg (35-46); PO2 ABG 87 mmHg (80-95)
[2020-03-03 11:40] LABS: Allen Test Pos (Pos)
[2020-03-03 11:43] LABS: pH ABG 7.52 (7.35-7.45)
--- NOTE | 2020-03-03 12:53 | Hospitalist Progress Note ---
Date of Service March 03, 2020 Assessment & Plan (1) Acute respiratory failure with hypoxia: Resolved - negative COVID-19 acute hypoxia, respiratory distress, CT findings concerning for pneumonia and moderate bilateral effusions consider rapid afib with valvular heart disease resulting in HF and effusions patient continues to be improved now on oral lasix follow I/O and exercise tolerance - Consulted pulmonary - no need for acute thoracentesis given lasix 40 mg each day x2, home dose increased from 20->40 03/01 Leukocytosis on admission, procal on admission was negative, will give 1 more day of Augmentin for five days total ABG today performed due to somnolence. Alkalotic. Unclear reason, could represent contraction alkalosis due to lasix but for now will leave medications where they are. Does not appear dry on labs, good output, will recheck prp tomorrow morning. Patient's drowsiness was most likely secondary to having just participated in physical therapy just prior to my arrival. 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 According to Dr Massey will not be a good candidate for open surgical correction due to comorbid disease process (3) Pleural effusion: - Pulm consulted for possible thoracentesis,none planned at this time as above - continue diuretics (4) Atrial fibrillation: - On xarelto 15 mg daily-resumed 03/01 echo with significant mitral and aortic valve disease along with 5.2 ascending aortic aneurysm. Heart rate hovering around 100, can go up on metoprolol per cardiology if necessary but cautions with valvular disease against dropping pressure too much. Will leave metoprolol at home dosing for now - Possible decompensated heart failure in the setting of pulmonary edema/pleural effusions? Pt with hx of aortic valve dysfunction, (5) Elevated troponin: - Trop elevated at 0.526->1->0.6 - EKG reviewed likely demand ischemia from hypoxia (6) Recurrent UTI: - hx of such - UA appears to be contaminated here, culture is negative - Had UA sent earlier this week for concern for UTI and came back negative. Resume nitrofurantoin (7) Hypertension: -Continue losartan/HCTZ daily 100-25 mg, metoprolol tartrate 25 mg BID, restarted oral Lasix at 40 mg a day on 03/01/2020 (8) GERD without esophagitis: -Continue pantoprazole (9) Constipation: -Chronic, nursing reports from [facility] that patient had large dark bowel movement this morning during altered mental status, possibly incontinent of stool, heme negative here in the ER. - Does take senna plus and docusate 100 mg twice daily for chronic constipation (10) Vitamin D deficiency: -Continue supplementation (11) Vitamin B12 deficiency: -Continue supplementation (12) Postherpetic neuralgia: -no issues at this time (13) Hyponatremia: -Improving daily continue to follow while instituting Lasix therapy (14) Sarcopenia: -Albumin 3.3 on admission, establish increased protein supplementation with dietary intake once more awake (15) Hypokalemia: Now replete (16) DVT prophylaxis: - Adelina parrish CODE: DNR/DNI- Dispo: per PT/OT notes, patient will require some rehab before returning to [facility]. Patient's son is unsure if they want her to do that because it will require 2 weeks of quarantine up on returning to [facility] which would be a long time without seeing her family given her time here and then if she went to rehab. He requests that CM conference call him and his sister tomorrow to discuss options. Admission and Anticipated Discharge Date Admission Date: February 28, 2020 Subjective Ms. Romero is very tired when I see her, falling asleep as we talk while sitting in her chair. She was participating in therapy before my arrival. She is unsure where she is but knew her name and that it was February. She has no complaints other than being very tired. Ms. Romero's son was updated by phone. ROS Constitutional: no chills, aches, sweats or fever Respiratory: no sob,cough, sputum, or wheezing Cardiac: no chest pain, palpitations, edema, orthopnea or lightheadedness GI: no abdominal pain, nausea, vomiting, diarrhea or constipation : no dysuria or hesitancy Extremities: no joint pain or weakness Skin: no rash All other systems reviewed and negative Physical Exam Physical Exam: General: no distress Eyes: normal inspection, PERLL Respiratory: chest non tender, clear to auscultation, normal breath sounds, no respiratory distress, no accessory muscle use Cardiac: regular rate and rhythm, no rub or gallop, no murmur, no edema, no jvd GI/: active bowel sounds, no abd pain or tenderness, soft, non distended Extremities: normal range of motion, normal strength, non tender Neuro/Psych: Drowsy, and oriented to person and month, normal mood and affect Skin: normal color, dry Results & Data Results & Data ([facility]) Vital Signs (Past 12 Hours) Vital Signs Temp Pulse Resp BP BP Pulse Ox 03/03/20 10:21 98 03/03/20 10:14 95 H 113/84 03/03/20 08:05 36.7 C 114 H 18 136/90 94 PG Care Time/CCT Total # of Minutes Spent Total Time Spent with Patient: Total time spent is greater than 50% in coordination of care (as documented) at patient's floor/unit and/or counseling patient: Coding Level of Care Code 55204 Subseq Hosp Care Lvl 3 Diagnoses Acute respiratory failure with hypoxia J96.01 Aortic aneurysm, thoracic I71.2 Pleural effusion J90 Atrial fibrillation I48.91 Atrial fibrillation type: unspecified Elevated troponin R79.89 Recurrent UTI N39.0 Hypertension I10 GERD without esophagitis K21.9 Constipation K59.00 Vitamin D deficiency E55.9 Vitamin B12 deficiency E53.8 Postherpetic neuralgia B02.29 Hyponatremia E87.1 Sarcopenia M62.84 Hypokalemia E87.6 DVT prophylaxis Z29.9 (1) Atrial fibrillation Atrial fibrillation type: unspecified Qualified Code(s): I48.91 - Unspecified atrial fibrillation
[2020-03-03] MEDS: AMOXICILLIN/CLAVULANATE 875 MG TAB PO SCH (14:46)
[2020-03-03] MEDS: RIVAROXABAN 15 MG TAB PO SCH (16:26)
[2020-03-03] MEDS: CHOLECALCIFEROL 1,000 UNITS 25 MCG TAB PO SCH (16:26)
[2020-03-04 05:05] LABS: Basophils # (auto) 0.01 K/uL (0-0.2); Basophils % (auto) 0.1 %; Eosinophils # (auto) 0.08 K/uL (0-0.5); Hematocrit (blood only) 40.4 % (37-47); Hemoglobin 13.9 g/dL (12.0-16.0); Immature Granulocytes # (auto) 0.04 K/uL (0.00-0.02); Immature Granulocytes % (auto) 0.5 %; Lymphocytes # (auto) 0.65 K/uL (1.2-3.4); Lymphocytes % (auto) 8.1 %; Mean Corpuscular Hemoglobin 33.7 pg (25-34); Mean Corpuscular Hgb Conc 34.4 g/dL (32-36); Mean Corpuscular Volume 97.8 fL (80-100); Monocytes % (auto) 8.7 %; Neutrophils # (auto) 6.56 K/uL (1.4-6.5); Neutrophils % (auto) 81.6 %; Platelet Count 132 K/uL (130-400); RDW Standard Deviation 50.1 fL (36.4-46.3); Red Blood Count 4.13 M/uL (4.2-5.4); White Blood Count 8.04 K/uL (4.8-10.8)
[2020-03-04 05:22] LABS: BUN Creatinine Ratio 33.3 (10-20); Creatinine Clr Calc Pharmacy 56.8 ml/min; Est GFR (African American) 94.7; Est GFR (Non-African American) 81.7; Potassium 3.5 mmol/L (3.5-5.1)
[2020-03-04 05:25] LABS: Albumin Globulin Ratio 0.9 (0.9-2); Bilirubin,Total 0.9 mg/dl (0.2-1); Globulin 3.4 gm/dl (2.5-4.0); Total Protein 6.4 gm/dl (6.4-8.2)
[2020-03-04] MEDS: CYANOCOBALAMIN 500 MCG TABLET (VITAMIN B-12) PO SCH (08:37)
[2020-03-04] MEDS: SENNA 8.6 MG TAB PO PRN (08:37)
[2020-03-04] MEDS: LOSARTAN/HCTZ 50/12.5MG TAB PO SCH (08:37)
[2020-03-04] MEDS: PANTOprazole 40 MG TAB PO SCH (08:37)
[2020-03-04] MEDS: DULOXETINE HCL 20 MG CAP PO SCH (08:37)
[2020-03-04] MEDS: FERROUS SULFATE 325 MG TAB PO SCH (08:38)
[2020-03-04] MEDS: DOCUSATE SODIUM 100 MG CAP PO SCH (08:38)
[2020-03-04] MEDS: AMOXICILLIN/CLAVULANATE 875 MG TAB PO SCH (08:38)
[2020-03-04] MEDS: FUROSEMIDE 40 MG TAB PO SCH (10:32)
[2020-03-04] MEDS: nitrofurantoin macrocrystaL 50 MG CAP PO SCH (10:32)
[2020-03-04] MEDS: ASCORBIC ACID 500 MG TAB PO SCH (10:32)
[2020-03-04] MEDS: METOPROLOL TARTRATE 25 MG TAB PO SCH (10:32)
--- NOTE | 2020-03-04 15:59 | Discharge Summary ---
Date of Service March 04, 2020 Admission HPI Per Admitting Provider This is an 89 yo F with PMHx of chronic A. fib on Xarelto, HTN, HLD, myelodysplasia, aortic valve dysfunction, vitamin D and B12 deficiency, gait disturbance, GERD, chronic constipation, recurrent UTIs, anemia, postherpetic neuralgia, who presented with altered mental status to the ER. The patient is unable to provide any HPI or ROS. She moans at bedside but unable to provide any other sufficient information. Spoke with Kristie, a nurse at [facility] - Staff noticed pt wasn't herself yesterday and became more confused, was not able to dress herself last evening and normally is very independent. She at one point had a pull up brief on her head. A urine culture was sent out for hx of recurrent UTIs, and they are awaiting results. Pt went to sleep without any overnight events. At 7Am this morning she was found moaning in bed, not speaking any other words, and reported pain in the abdomen. She had a dark black bowel movement this morning while in bed, unaware that she had done so. Nursing reports chronic nausea and takes a zofran 2 mg Q6H prn at least two times a day routinely. She had a pursed lip breathing, her hands were dark purple and lips pale, + use of accessory muscles for breathing, and hypoxic in the mid 80s upon EMS arrival on room air.. She previously worse O2 at home before, but was not required upon her arrival to their facility and has been there since Nov 2019.. Never had symptoms prior to this similar to this. Pt has not traveled, limited staff at the faciligy and no known community exposure. Afebrile. PT/OT last was in there 14 days ago who come in from outside agencies. Nursing staff denies any known COVID- 19 exposure. She was able to take medication last evening. She had eaten dinner last evening at 5 pm without difficulty. Principal Diagnosis Hypoxia, afib rvr Discharge Exam Constitutional WD/WN, vitals as above Respiratory normal respiratory effort, lungs clear to auscultation Cardiovascular RRR, no murmur, no edema Gastrointestinal (Abdomen) Inspection/Auscultation: abdomen normal to inspection and normal bowel sounds; abdomen not distended Percussion/Palpation: abdomen soft; abdomen nontender Musculoskeletal no cyanosis or clubbing, extremities motor strength 5/5 Skin no rashes, warm and dry Neurologic moves all extremities and awake Psychiatric A+Ox3, euthymic affect Discharge Data Allergies Allergy/AdvReac Type Severity Reaction Status Date / Time Quinidine-Quinine Analogues Allergy Severe Anaphylaxis Verified 02/28/20 08:50 (Cincho Sulfa (Sulfonamide Allergy Severe HIVES Verified 02/28/20 08:50 Antibiotics) tetracycline Allergy Mild GI SYMPTOMS Verified 02/28/20 08:50 tramadol AdvReac Cognitive Verified 02/28/20 08:50 symptoms Consultations 02/28/20 11:36 ED Decision to Admit Stat 02/28/20 12:35 Consult Pulmonology Stat 02/28/20 17:50 Consult Case Management - Discharge Planning Routine 02/29/20 11:59 Consult Cardiology Routine Ordered Studies 02/28/20 08:31 CT abd pelvis IV con only Stat CT angio chest PE protocol Stat CT head/brain wo con Stat Hospital Course (1) Acute respiratory failure with hypoxia: Resolved - negative COVID-19 acute hypoxia, respiratory distress, CT findings concerning for pneumonia and moderate bilateral effusions consider rapid afib with valvular heart disease resulting in HF and effusions patient continues to be improved now on oral lasix follow I/O and exercise tolerance - Consulted pulmonary - no need for acute thoracentesis home dose increased from 20->40 03/01 Leukocytosis on admission, procal on admission was negative, Augmentin bid for five days total completed (2) Pneumonia: As above, antibiotics completed (3) Aortic aneurysm, 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 According to Dr Massey will not be a good candidate for open surgical correction due to comorbid disease process (4) Pleural effusion: - Pulm consulted for possible thoracentesis,none planned at this time as above - continue diuretics (5) Atrial fibrillation: - On xarelto 15 mg daily-resumed 03/01 echo with significant mitral and aortic valve disease along with 5.2 ascending aortic aneurysm. Heart rate hovering around 100, can go up on metoprolol per cardiology if necessary but cautions with valvular disease against dropping pressure too much. Will leave metoprolol at home dosing for now (6) Elevated troponin: - Trop elevated at 0.526->1->0.6 - EKG reviewed - likely demand ischemia from hypoxia (7) Recurrent UTI: - hx of such - UA appears to be contaminated here, culture is negative - Had UA sent earlier this week for concern for UTI and came back negative. Resume nitrofurantoin (8) Hypertension: -DC HCTZ daily, continue losartan 50 mg, metoprolol tartrate 25 mg BID, restarted oral Lasix at 40 mg a day on 03/01/2020 (9) GERD without esophagitis: -Continue pantoprazole (10) Constipation: -Chronic, nursing reports from [facility] that patient had large dark bowel movement this morning during altered mental status, possibly incontinent of stool, heme negative here in the ER. - Does take senna plus and docusate 100 mg twice daily for chronic constipation (11) Vitamin D deficiency: -Continue supplementation (12) Vitamin B12 deficiency: -Continue supplementation (13) Postherpetic neuralgia: -no issues at this time (14) Hyponatremia: -Improved and maintained at 131 over the last few days. DC HCTZ as above. Would have repeat level drawn in a week or so (15) Sarcopenia: -Albumin 3.3 on admission, establish increased protein supplementation with dietary intake once more awake (16) Hypokalemia: Now replete (17) DVT prophylaxis: - Adelina prarish CODE: DNR/DNI- Total Time Total Time Spent Total Time Spent (In Minutes): greater than 30 minutes Discharge Plan Discharge Items Patient Disposition: Transfer Inpatient Rehab Fac Reason For Visit: AMS,ACUTE HYPOXIC RESP FAILURE Discharge Diagnosis: Atrial fibrillation RVR, hypoxia Condition on Discharge: Good Activity: Resume your previous activity Non-emergency contact: Primary Care Provider Call non-emergency contact if: you have any medication questions [facility] - Diet: Heart Healthy Addtl Attending Provider Instructions: (1) Acute respiratory failure with hypoxia/pneumonia: Resolved - negative COVID-19 CT findings concerning for pneumonia and moderate bilateral effusions Improved with Lasix and antibiotics - completed antibiotic course Home lasix increased from 20 mg daily to 40 mg daily (2) Aortic aneurysm, 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 According to Dr Massey (cardiology) will not be a good candidate for open surgical correction due to comorbidities (3) Pleural effusion: - continue diuretics (4) Atrial fibrillation: - On xarelto 15 mg daily-resumed 03/01 - echocardiogram with significant mitral and aortic valve disease along with 5.2 ascending aortic aneurysm. - Heart rate hovering around 100, can go up on metoprolol per cardiology if necessary but cautions with valvular disease against dropping pressure too much. Will leave metoprolol at home dosing (5) Elevated troponin: - Resolved - likely demand ischemia from hypoxia (6) Recurrent UTI: History of such - Urinalysis appears to be contaminated here, culture is negative - Continue nitrofurantoin (7) Hypertension: -discontinued HCTZ as furosemide was increased and sodium was mildly decreased. Continue losartan, metoprolol tartrate 25 mg BID, oral Lasix at 40 mg a day (8) GERD without esophagitis: -Continue pantoprazole (9) Constipation: - senna plus and docusate 100 mg twice daily for chronic constipation (10) Vitamin D deficiency: -Continue supplementation (11) Vitamin B12 deficiency: -Continue supplementation (12) Hyponatremia: -Sodium 131 over the last 3 days. Discontinued HCTZ. Recheck prp in a week (13) Sarcopenia: -Albumin 3.3 on admission, consider Boost supplementation Pending Studies at Discharge: No Skilled Items Patient informed of condition?: Yes DNR: Yes Discharge Level of Care: Acute rehab Communicable Disease: No Discharge Prognosis: Stable Lines: None Urinary Catheter: No Medications and DC Order Prescriptions: New losartan 50 mg Tablet 25 mg PO QAM Qty: 30 RF: 0 furosemide 40 mg Tablet 40 mg PO DAILY@0800 Qty: 30 RF: 0 Continued ascorbic acid (vitamin C) 500 mg tablet 1 gm PO BID RF: 0 metoprolol tartrate 25 mg tablet 25 mg PO BID Qty: 180 RF: 3 cyanocobalamin (vitamin B-12) 1,000 mcg tablet, sublingual 1,000 mcg SL DAILY@0800 Qty: 90 RF: 0 levalbuterol tartrate [Xopenex HFA] 45 mcg/actuation HFA aerosol inhaler 2 puffs INH Q4H PRN (Reason: shortness of breath or wheezing) Qty: 15 RF: 5 ondansetron HCl [Zofran] 4 mg tablet 4 mg PO Q8H PRN (Reason: nausea and vomiting) Qty: 90 RF: 0 nitrofurantoin macrocrystal 100 mg capsule 100 mg PO DAILY@0800 Qty: 90 RF: 3 ferrous sulfate 325 mg (65 mg iron) tablet 325 mg PO BID Qty: 60 RF: 0 cholecalciferol (vitamin D3) 125 mcg (5,000 unit) tablet 5,000 units PO DAILY@1600 Qty: 30 RF: 0 docusate sodium 100 mg capsule 100 mg PO BID RF: 0 acetaminophen 325 mg tablet 650 mg PO Q4H PRN (Reason: fever or pain) RF: 0 dextromethorphan-guaifenesin 10-100 mg/5 mL liquid 5 ml PO Q4H PRN (Reason: cough) RF: 0 senna 8.6 mg Capsule 8.6 mg PO BID PRN (Reason: Constipation) RF: 0 pantoprazole 40 mg tablet,delayed release (DR/EC) 40 mg PO DAILY@0800 RF: 0 duloxetine 20 mg capsule,delayed release(DR/EC) 20 mg PO DAILY@0800 RF: 0 rivaroxaban 15 mg tablet 15 mg PO DAILY@1600 RF: 0 Discontinued furosemide 20 mg tablet 20 mg PO DAILY@0800 RF: 0 losartan-hydrochlorothiazide 50-12.5 mg tablet 0.5 tab PO DAILY@0800 RF: 0 Discharge Orders: Discharge Order (Routine); Ordered 03/04/20 Ordered By: Kasia Hunter Admission Data Admit Date/Time: 02/28/20 11:50 Attending Provider: Leonardo Rodriguez Admit Provider: Jamia Rubalcava Primary Care Provider: [facility], [facility] Other Providers: Alberto Hendricks ; Lars Massey ; Leonardo Rodriguez ; [facility] Other Interventions: Discharge Summary Assessment (RN) Last Done: 03/04/20 15:39 DC Date/Time DO NOT enter until pt leaves facility: 03/04/20 17:48 Supervising Physician Co-Signing Physician Notes I supervised Kasia Hunter NP on this patient's care. I examined the patient today independently of her. I discussed the plan of care with her with the plan being as written in her note except for any following changes/exceptions: None. In good spirits today. Her HR is generally well-controlled overall. Ready for discharge. Coding Level of Care Code D/C Day Management >30 mins Diagnoses Acute respiratory failure with hypoxia J96.01 Pneumonia J18.9 Aortic aneurysm, thoracic I71.2 Pleural effusion J90 Atrial fibrillation I48.91 Atrial fibrillation type: unspecified Elevated troponin R79.89 Recurrent UTI N39.0 Hypertension I10 GERD without esophagitis K21.9 Constipation K59.00 Vitamin D deficiency E55.9 Vitamin B12 deficiency E53.8 Postherpetic neuralgia B02.29 Hyponatremia E87.1 Sarcopenia M62.84 Hypokalemia E87.6 DVT prophylaxis Z29.9
[2020-03-04] MEDS: CHOLECALCIFEROL 1,000 UNITS 25 MCG TAB PO SCH (17:04)
[2020-03-04] MEDS: RIVAROXABAN 15 MG TAB PO SCH (17:04)
[2020-03-05] MEDS ORDERED: LOSARTAN POTASSIUM 50 MG TAB PO SCH (09:00)
== END 2020-03-04 17:48 | DRG 189 ==
LOC: ED 08:14 → 2S 11:50 → SUATTDRO 11:50 → 2S 16:09 → 3E 03-02 15:01